=== PATIENT | male | born 1980 | race Hispanic/Latino ===

== ENCOUNTER 2017-09-24 09:58 | Emergency (ER) | payer SELFPAY ==
[2017-09-24] MEDS ORDERED: FENTANYL CITR 100 MCG/2 ML ONE (11:48)
--- NOTE | 2017-09-24 12:55 | RAD REPORT ---
EXAM DESCRIPTION: RAD - Knee Right 3 View - 09/24/2017 12:42 pm CLINICAL HISTORY: Right knee pain. COMPARISON: None. FINDINGS: No fracture or dislocation seen. Soft tissue swelling is evident.
[2017-09-24 12:56] LABS: Bicarbonate 33 mEq/L (21-31); Glucose Level 131 mg/dL (65-120); Sodium Level 137 mEq/L (135-145)
[2017-09-24 12:58] LABS: ALT/SGPT 24 IU/L (10-60); AST/SGOT 19 IU/L (10-42); BUN Blood Urea Nitrogen 13 mg/dL (6-20); Bilirubin Total 0.2 mg/dL (0.3-1.2); CKMB Creatine Kinase MB 3.9 ng/ml (0.3-4.0); Creatine Phosphokinase 128 IU/L (22-269); Magnesium 1.9 mg/dL (1.8-2.5); Protein, Total 7.2 g/dL (6.0-8.3)
--- NOTE | 2017-09-24 12:58 | RAD REPORT ---
EXAM DESCRIPTION: [place] Single View09/24/2017 12:43 pm CLINICAL HISTORY: Chest pain COMPARISON: none FINDINGS: The lungs appear grossly clear. The heart is mildly enlarged. IMPRESSION: No acute abnormalities displayed
[2017-09-24 13:04] LABS: Alkaline Phosphatase 87 IU/L (42-121); Bilirubin Direct 0.1 mg/dL (0-0.2); C-Reactive Protein 37.4 mg/L (<10.0); Uric Acid 5.7 mg/dL (4.8-8.7)
[2017-09-24 13:17] LABS: Protime INR 1.09
[2017-09-24 13:21] LABS: Absolute Lymphocytes (CBC) 1.9 K/uL (0.7-4.9); Absolute Monocytes 0.8 K/uL (0.1-1.3); Absolute Neutrophil 10.2 K/uL (1.8-8.0); Basophils % 0.3 % (0-1.3); Eosinophils % 2.2 % (0-4.4); Hematocrit 36.3 % (39.6-49.0); Lymphocytes % 14.4 % (15.3-44.8); MCH 23.9 pg (27.0-35.0); MPV 6.9 fL (7.6-11.3); Monocytes % 5.7 % (3.3-12.3)
[2017-09-24 14:09] LABS: Urine Blood 2+ (NEG); Urine Glucose NEGATIVE (NEG); Urine Protein 3+ (NEG); Urine Specific Gravity 1.025 (1.005-1.030)
--- NOTE | 2017-09-24 14:20 | ER ---
Nurse's Notes [facility] Name: Mandy Dee Age: 37 yrs Sex: Male : 1980 Arrival Date: 09/24/2017 Time: 10:04 Bed 14 Private MD: Diagnosis: Pain in right knee;Obesity, unspecified;Peripheral vascular disease, unspecified;Edema, unspecified Presentation: 09/24 10:33 Presenting complaint: Patient states: I've been having pain in my knee, and today I aj1 can't stand on it. I have these spider bites on my legs and they are draining and it hurts a lot. Redness and swelling, swelling and purulent drainage noted from right leg. Denies fever. Transition of care: patient was not received from another setting of care. Onset of symptoms was July 13, 2017. Initial Sepsis Screen: Does the patient meet any 2 criteria? No. Patient's initial sepsis screen is negative. Does the patient have a suspected source of infection? Yes: Skin breakdown/wound. Care prior to arrival: None. 10:33 Method Of Arrival: Ambulatory aj 10:33 Acuity: DEVON 3 aj1 Triage Assessment: 10:37 General: Appears in no apparent distress. uncomfortable, Behavior is calm, cooperative, aj1 appropriate for age. Pain: Complains of pain in right leg Pain does not radiate. Pain currently is 10 out of 10 on a pain scale. Quality of pain is described as sharp, Pain began a week and a half ago Is continuous. Derm: redness, swelling, heat, purulent drainage from right fields. Historical: - Allergies: 10:37 No Known Allergies; aj1 - Home Meds: 10:37 Lisinopril Oral [Active]; Metformin Oral [Active]; aj1 - PMHx: 10:37 Diabetes - NIDDM; Hypertension; aj1 - PSHx: 10:37 None; aj1 - Immunization history:: Adult Immunizations up to date. - Social history:: Smoking status: Patient/guardian denies using tobacco, Patient uses street drugs, marijuana. Screenin:16 Abuse screen: Denies threats or abuse. Denies injuries from another. Nutritional hj screening: No deficits noted. Tuberculosis screening: No symptoms or risk factors identified. Fall Risk None identified. Assessment: 10:55 General: Appears in no apparent distress. uncomfortable, Behavior is calm, cooperative, hj appropriate for age. Pain: Complains of pain in right leg. Neuro: Level of Consciousness is awake, alert, obeys commands, Oriented to person, place, time, situation, Appropriate for age. Cardiovascular: Capillary refill < 3 seconds Patient's skin is warm and dry. Respiratory: Airway is patent Respiratory effort is even, unlabored, Respiratory pattern is regular, symmetrical. GI: No signs and/or symptoms were reported involving the gastrointestinal system. : No signs and/or symptoms were reported regarding the genitourinary system. EENT: No signs and/or symptoms were reported regarding the EENT system. Derm: Reports pain. Musculoskeletal: Reports pain in right leg. Vital Signs: 10:37 BP 204 / 95; Pulse 78; Resp 20; Temp 98.2(TE); Pulse Ox 95% on R/A; Weight 249.48 kg aj1 (R); Height 6 ft. 2 in. (187.96 cm) (R); Pain 10/10; 11:12 BP 159 / 98; Pulse 89; Resp 22; Pulse Ox 95% on R/A; mh5 14:52 BP 140 / 95; Pulse 85; Resp 18; Pulse Ox 100% on R/A; hj 10:37 Body Mass Index 70.62 (249.48 kg, 187.96 cm) aj1 ED Course: 10:04 Patient arrived in ED. sb2 10:36 Triage completed. aj1 10:37 Arm band placed on Patient notified of wait time. aj1 11:13 [facility]C [facility] snw 11:14 Rubén Navarro MD is Attending Physician. snw 11:16 Trevor Rogel, BRENNAN is Primary Nurse. hj 11:16 Patient has correct armband on for positive identification. Bed in low position. Call light in reach. Side rails up X 1. Adult w/ patient. 12:10 Initial lab(s) drawn, by me, sent to lab. First set of blood cultures drawn by ED staff.hj 12:26 Inserted saline lock: 22 gauge in right antecubital area, using aseptic technique. Blood collected. 12:27 Second set of blood cultures drawn by me. hj 12:37 X-ray completed. Portable x-ray completed in exam room. Patient tolerated procedure jb2 well. 12:39 Knee Right 3 View XRAY In Process Unspecified. EDMS 12:39 XRAY Chest (1 view) In Process Unspecified. EDMS 12:41 EKG done, by automotive tire technician. reviewed by Annalise SUH. 14:51 No provider procedures requiring assistance completed. IV discontinued, intact, hj bleeding controlled, No redness/swelling at site. Pressure dressing applied. Administered Medications: 12:10 Drug: fentaNYL (PF) 50 mcg Route: IVP; Site: right antecubital; hj 14:13 Follow up: Response: No adverse reaction hj 14:21 Drug: Doxycycline 100 mg Route: PO; hj 14:28 Follow up: Response: No adverse reaction hj 14:21 Drug: [place] 5 mg-325 mg 1 tabs Route: PO; hj 14:28 Follow up: Response: No adverse reaction hj Outcome: 14:20 Discharge ordered by MD. snw 14:51 Discharged to home via wheelchair. 14:51 Condition: stable 14:51 Discharge instructions given to patient, family, Instructed on discharge instructions, follow up and referral plans. medication usage, Demonstrated understanding of instructions, follow-up care, medications, Prescriptions given X 2. 14:53 Patient left the ED. Signatures: Dispatcher [employer] EDLorraine Napoles RN RN aj1 Annalise Deluca FNP-C FNP-Maryw Andriy Martin jb2 Angela Lozano Trevor Rogel RN RN hj Martinez, [facility] Jordyn Montemayor 2
--- NOTE | 2017-09-24 14:20 | EDPHYS ---
Physician Documentation [facility] Name: Mandy Dee Age: 37 yrs Sex: Male : 1980 Arrival Date: 09/24/2017 Time: 10:04 Bed 14 Private MD: ED Physician Rubén Nvaarro HPI: 09/24 12:06 This 37 yrs old Male presents to ER via Ambulatory with complaints of LEG snw INFECTION. 12:06 Onset: The symptoms/episode began/occurred gradually, 1 month(s) ago, and became snw persistent. Associated signs and symptoms: Pertinent positives: right knee pain. Modifying factors: The patient symptoms are alleviated by nothing, the patient symptoms are aggravated by ambulation. The patient has experienced a previous episode. The patient has not recently seen a physician, sees [facility]. Historical: - Allergies: 10:37 No Known Allergies; aj1 - Home Meds: 10:37 Lisinopril Oral [Active]; Metformin Oral [Active]; aj1 - PMHx: 10:37 Diabetes - NIDDM; Hypertension; aj1 - PSHx: 10:37 None; aj1 - Immunization history:: Adult Immunizations up to date. - Social history:: Smoking status: Patient/guardian denies using tobacco, Patient uses street drugs, marijuana. ROS: 12:04 Constitutional: Negative for fever, chills, and weight loss, Eyes: Negative for injury, snw pain, redness, and discharge, ENT: Negative for injury, pain, and discharge, Neck: Negative for injury, pain, and swelling, Cardiovascular: Negative for chest pain, palpitations, and edema, Respiratory: Negative for shortness of breath, cough, wheezing, and pleuritic chest pain, Abdomen/GI: Negative for abdominal pain, nausea, vomiting, diarrhea, and constipation, Back: Negative for injury and pain, : Negative for injury, bleeding, discharge, and swelling, Skin: Negative for injury, rash, and discoloration, Neuro: Negative for headache, weakness, numbness, tingling, and seizure. 12:04 MS/extremity: Positive for decreased range of motion, pain, of the right knee. Exam: 11:58 Head/Face: Normocephalic, atraumatic. Eyes: Pupils equal round and reactive to light, snw extra-ocular motions intact. Lids and lashes normal. Conjunctiva and sclera are non-icteric and not injected. Cornea within normal limits. Periorbital areas with no swelling, redness, or edema. ENT: Nares patent. No nasal discharge, no septal abnormalities noted. Tympanic membranes are normal and external auditory canals are clear. Oropharynx with no redness, swelling, or masses, exudates, or evidence of obstruction, uvula midline. Mucous membranes moist. Neck: Trachea midline, no thyromegaly or masses palpated, and no cervical lymphadenopathy. Supple, full range of motion without nuchal rigidity, or vertebral point tenderness. No Meningismus. Chest/axilla: Normal chest wall appearance and motion. Nontender with no deformity. No lesions are appreciated. Cardiovascular: Regular rate and rhythm with a normal S1 and S2. No gallops, murmurs, or rubs. Normal PMI, no JVD. No pulse deficits. Respiratory: Lungs have equal breath sounds bilaterally, clear to auscultation and percussion. No rales, rhonchi or wheezes noted. No increased work of breathing, no retractions or nasal flaring. 11:58 Back: No spinal tenderness. No costovertebral tenderness. Full range of motion. Neuro: Awake and alert, GCS 15, oriented to person, place, time, and situation. Cranial nerves II-XII grossly intact. Motor strength 5/5 in all extremities. Sensory grossly intact. Cerebellar exam normal. Normal gait. Psych: Awake, alert, with orientation to person, place and time. Behavior, mood, and affect are within normal limits. 11:58 Constitutional: The patient appears alert, awake, obese, uncomfortable. 11:58 Abdomen/GI: Inspection: obese Bowel sounds: normal, Palpation: mild abdominal tenderness, in all quadrants. 11:58 Musculoskeletal/extremity: Extremities: decreased ROM, swelling, tenderness, right lower ext with external rotation of foot, resists moving foot secondary to right knee pain. 11:58 Skin: Appearance: normal except for affected area, bilateral legs tight, edematous, orange peel like with mild erythema and seeping. Vital Signs: 10:37 BP 204 / 95; Pulse 78; Resp 20; Temp 98.2(TE); Pulse Ox 95% on R/A; Weight 249.48 kg aj1 (R); Height 6 ft. 2 in. (187.96 cm) (R); Pain 10/10; 11:12 BP 159 / 98; Pulse 89; Resp 22; Pulse Ox 95% on R/A; mh5 14:52 BP 140 / 95; Pulse 85; Resp 18; Pulse Ox 100% on R/A; hj 10:37 Body Mass Index 70.62 (249.48 kg, 187.96 cm) aj1 MDM: 11:14 Patient medically screened. snw 14:22 Data reviewed: vital signs, nurses notes. Data interpreted: Pulse oximetry: on room air snw is 95 %. Interpretation: acceptable. Counseling: I had a detailed discussion with the patient and/or guardian regarding: the historical points, exam findings, and any diagnostic results supporting the discharge/admit diagnosis, the presence of at least one elevated blood pressure reading (>120/80) during this emergency department visit, lab results, radiology results, the need for outpatient follow up, to return to the emergency department if symptoms worsen or persist or if there are any questions or concerns that arise at home. Special discussion: Based on the history and exam findings, there is no indication for further emergent testing or inpatient evaluation. I discussed with the patient/guardian the need to see the orthopedic surgeon for further evaluation of the symptoms. I discussed with the patient/guardian the need to see the primary care provider for further evaluation of the symptoms. 09/24 11:40 Order name: Basic Metabolic Panel; Complete Time: 13: snw 09/24 11:40 Order name: BNP; Complete Time: 13:02 snw 09/24 11:40 Order name: CBC with Diff; Complete Time: 13:36 snw 09/24 11:40 Order name: Ckmb; Complete Time: 13: snw 09/24 11:40 Order name: CPK; Complete Time: 13:05 snw 09/24 11:40 Order name: LFT's; Complete Time: 13:05 snw 09/24 11:40 Order name: Magnesium; Complete Time: 13:05 snw 09/24 11:40 Order name: PT-INR; Complete Time: 13:31 snw 09/24 11:40 Order name: Ptt, Activated; Complete Time: 13:31 snw 09/24 11:40 Order name: Blood Culture Adult (2) snw 09/24 11:40 Order name: Lactate; Complete Time: 13:02 09/24 11:40 Order name: Procalcitonin; Complete Time: 13:11 09/24 11:40 Order name: CRP; Complete Time: 13:05 09/24 11:40 Order name: Uric Acid; Complete Time: 13:05 09/24 11:00 Order name: Knee Right 3 View XRAY; Complete Time: 12:55 09/24 11:40 Order name: XRAY Chest (1 view); Complete Time: 13:02 09/24 11:40 Order name: EKG; Complete Time: 11:41 09/24 11:40 Order name: Cardiac monitoring; Complete Time: 11:41 09/24 11:40 Order name: EKG - Nurse/Tech; Complete Time: 12:26 09/24 11:40 Order name: IV Saline Lock; Complete Time: 12:26 09/24 11:40 Order name: Labs collected and sent; Complete Time: 12:26 09/24 11:40 Order name: O2 Per Protocol; Complete Time: 11:41 09/24 11:40 Order name: O2 Sat Monitoring; Complete Time: 11:41 09/24 11:40 Order name: Urine Dipstick-Ancillary (obtain specimen); Complete Time: 12:55 09/24 11:40 Order name: LDH; Complete Time: 13:05 09/24 12:58 Order name: Urine Dipstick--Ancillary (enter results); Complete Time: 14:18 bd Administered Medications: 12:10 Drug: fentaNYL (PF) 50 mcg Route: IVP; Site: right antecubital; hj 14:13 Follow up: Response: No adverse reaction hj 14:21 Drug: Doxycycline 100 mg Route: PO; hj 14:28 Follow up: Response: No adverse reaction hj 14:21 Drug: [place] 5 mg-325 mg 1 tabs Route: PO; hj 14:28 Follow up: Response: No adverse reaction Disposition: 09/25 06:26 Co-signature as Attending Physician, Rubén Navarro MD. Disposition: 09/24/17 14:20 Discharged to Home. Impression: Pain in right knee, Obesity, unspecified, Peripheral vascular disease, unspecified, Edema, unspecified. - Condition is Stable. - Discharge Instructions: Edema, Knee Bracing, Obesity, Peripheral Vascular Disease, Knee Pain, Rehydration, Adult. - Prescriptions for Hydrochlorothiazide 25 mg Oral Tablet - take 1 tablet by ORAL route once daily .; 30 tablet. Doxycycline Hyclate 100 mg Oral Tablet - take 1 tablet by ORAL route every 12 hours; 20 tablet. - Work release form, Medication Reconciliation Form, Thank You Letter, Antibiotic Education, Prescription Opioid Use form. - Follow up: Private Physician; When: 2 - 3 days; Reason: Recheck today's complaints, Continuance of care, Re-evaluation by your physician. Follow up: Emergency Department; When: As needed; Reason: Worsening of condition. Signatures: Dispatcher [employer] EDMS Lorraine Jackson RN RN aj1 Annalise Deluca, WIRE DROPPER-C WIRE DROPPER-Csnw Trevor Rogel RN RN Rubén Tee MD MD gs Corrections: (The following items were deleted from the chart) 09/24 14:53 14:20 09/24/2017 14:20 Discharged to Home. Impression: Pain in right knee; Obesity, hj unspecified; Peripheral vascular disease, unspecified; Edema, unspecified. Condition is Stable. Forms are Medication Reconciliation Form, Thank You Letter, Antibiotic Education, Prescription Opioid Use. Follow up: Private Physician; When: 2 - 3 days; Reason: Recheck today's complaints, Continuance of care, Re-evaluation by your physician. Follow up: Emergency Department; When: As needed; Reason: Worsening of condition. snw
[2017-09-24] MEDS ORDERED: DOXYCYCLINE 100 MG CAP PO ONE (14:26)
[2017-09-24] MEDS ORDERED: HYDROCODONE/APAP 5/325 MG TAB ONE (14:26)
--- NOTE | 2017-09-24 15:38 | EKG ---
Test Date: 2017-09-24 Test Time: 11:56:58 Accounting Systems Manager: TIM MEASUREMENT RESULTS: Intervals: Rate: 83 AL: 126 QRSD: 86 QT: 378 QTc: 444 [place]: P: 32 AL: 126 QRS: 75 T: 45 INTERPRETIVE STATEMENTS: Normal sinus rhythm Normal ECG No previous ECG available for comparison Electronically Signed On 09-24-17 15:37:32 CDT by Joaquín Villafuerte
== END 2017-09-24 14:53 | disposition home or self-care (01) ==
LOC: ER 09:58
DX: I73.9 Peripheral vascular disease, unspecified (principal); R60.9 Edema, unspecified; E66.9 Obesity, unspecified; I10 Essential (primary) hypertension; E11.9 Type 2 diabetes mellitus without complications
CPT/HCPCS: 36415; 71045; 80048; 80076; 81003; 82550; 82553; 83605; 83615; 83735; 83880; 84145; 84550; 85025; 85610; 85730; 86140; 87040; 93005; 96374; 99284; J3010

== ENCOUNTER 2018-10-11 08:53 | Observation (INO) | payer SELFPAY ==
[2018-10-11] MEDS ORDERED: FAMOTIDINE 20 MG/2 ML VIAL IV ONE (09:49)
[2018-10-11 09:57] LABS: Absolute Lymphocytes (CBC) 1.9 K/uL (0.7-4.9); Absolute Monocytes 0.5 K/uL (0.1-1.3); Absolute Neutrophil 8.5 K/uL (1.8-8.0); Basophils % 0.4 % (0-1.3); Eosinophils % 1.9 % (0-4.4); Hematocrit 35.4 % (39.6-49.0); Lymphocytes % 16.9 % (15.3-44.8); MPV 7.8 fL (7.6-11.3); Monocytes % 4.4 % (3.3-12.3); RBC Red Blood Cell Count 4.13 M/uL (4.33-5.43)
[2018-10-11 10:14] LABS: ALT/SGPT 38 U/L (12-78); AST/SGOT 17 U/L (15-37); Albumin 3.2 g/dL (3.4-5.0); Alkaline Phosphatase 82 U/L (45-117); BUN Blood Urea Nitrogen 15 mg/dL (7-18); Bicarbonate 28 mmol/L (21-32); Bilirubin Direct < 0.1 mg/dL (0-0.2); Bilirubin Total 0.3 mg/dL (0.2-1.0); Glucose Level 120 mg/dL (74-106); Lipase 142 U/L (73-393); Magnesium 1.7 mg/dL (1.8-2.4); NT PRO-BNP 78 pg/mL (<125); Potassium 3.6 mmol/L (3.5-5.1); Protein, Total 7.1 g/dL (6.4-8.2); Sodium Level 140 mmol/L (136-145); Troponin (Emerg Dept Use Only) < 0.02 ng/mL (0.0-0.045)
[2018-10-11 10:23] LABS: Barbiturates NEGATIVE (NEGATIVE); Benzodiazepines NEGATIVE (NEGATIVE); Cocaine NEGATIVE (NEGATIVE); METHAMPHETAM NEGATIVE (NEGATIVE); Methadone NEGATIVE (NEGATIVE); Opiates NEGATIVE (NEGATIVE); Phencyclidine NEGATIVE (NEGATIVE); THC Cannibis POSITIVE (NEGATIVE)
--- OUTSIDE RECORDS SUMMARY | 2018-10-11 10:28 | XMS REPORT ---
:1980 [facility] Address [address] [place] [address] Care Team Providers Name Role Phone Unavailable Unavailable Unavailable Payers Payer Name Policy Type Policy Number Effective Date Expiration Date Problems This patient has no known problems. Allergies, Adverse Reactions, Alerts Allergy Allergy Status Severity Reaction(s) Onset Inactive Treating Comments Name Type Date Date Clinician shellnedra AGUILAR Active [place] 2018-04 00:00:0 0 Medications This patient has no known medications.
--- NOTE | 2018-10-11 10:34 | EDPHYS ---
Physician Documentation [facility] Name: Mandy Dee Age: 38 yrs Sex: Male : 1980 Arrival Date: 10/11/2018 Time: 08:55 Bed 5 Private MD: ED Physician Mohinder Rodriguez HPI: 10/11 10:28 This 38 yrs old Male presents to ER via EMS with complaints of chest pain and delvin dyspnea. 10:28 The patient has shortness of breath at rest, with light activity. Onset: The delvin symptoms/episode began/occurred just prior to arrival, this morning. Duration: The symptoms are continuous, and are steadily getting worse. The patient's shortness of breath has no apparent modifying factors. The patient or guardian reports chest pain that is located primarily in the substernal area. The pain does not radiate. Associated signs and symptoms: The patient has no apparent associated signs or symptoms. Severity of symptoms: At their worst the symptoms were mild in the emergency department the symptoms are unchanged. Associated signs and symptoms: The patient has no apparent associated signs or symptoms. The chest pain is described as a heaviness, a pressure. Historical: - Allergies: 09:04 SHELLFISH; ph - Home Meds: 09:04 lisinopril Oral [Active]; Metformin Oral [Active]; ph - PMHx: 09:04 Diabetes - NIDDM; Hypertension; ph - PSHx: 09:04 None; ph - Immunization history:: Adult Immunizations unknown. - Social history:: Smoking status: Patient/guardian denies using tobacco. - Ebola Screening: : No symptoms or risks identified at this time. - Family history:: not pertinent. ROS: 10:28 Constitutional: Negative for fever, chills, and weight loss, Eyes: Negative for injury, delvin pain, redness, and discharge, ENT: Negative for injury, pain, and discharge, Neck: Negative for injury, pain, and swelling, Abdomen/GI: Negative for abdominal pain, nausea, vomiting, diarrhea, and constipation, Back: Negative for injury and pain, : Negative for injury, bleeding, discharge, and swelling, MS/Extremity: Negative for injury and deformity, Skin: Negative for injury, rash, and discoloration, Neuro: Negative for headache, weakness, numbness, tingling, and seizure, Psych: Negative for depression, anxiety, suicide ideation, homicidal ideation, and hallucinations, Allergy/Immunology: Negative for hives, rash, and allergies, Endocrine: Negative for neck swelling, polydipsia, polyuria, polyphagia, and marked weight changes, Hematologic/Lymphatic: Negative for swollen nodes, abnormal bleeding, and unusual bruising. 10:28 Cardiovascular: Positive for chest pain. 10:28 Respiratory: Positive for shortness of breath, at rest. Exam: 10:28 Constitutional: This is a well developed, well nourished patient who is awake, alert, delvin and in no acute distress. Head/Face: Normocephalic, atraumatic. Eyes: Pupils equal round and reactive to light, extra-ocular motions intact. Lids and lashes normal. Conjunctiva and sclera are non-icteric and not injected. Cornea within normal limits. Periorbital areas with no swelling, redness, or edema. ENT: Nares patent. No nasal discharge, no septal abnormalities noted. Tympanic membranes are normal and external auditory canals are clear. Oropharynx with no redness, swelling, or masses, exudates, or evidence of obstruction, uvula midline. Mucous membranes moist. Neck: Trachea midline, no thyromegaly or masses palpated, and no cervical lymphadenopathy. Supple, full range of motion without nuchal rigidity, or vertebral point tenderness. No Meningismus. Chest/axilla: Normal chest wall appearance and motion. Nontender with no deformity. No lesions are appreciated. Cardiovascular: Regular rate and rhythm with a normal S1 and S2. No gallops, murmurs, or rubs. Normal PMI, no JVD. No pulse deficits. Respiratory: Lungs have equal breath sounds bilaterally, clear to auscultation and percussion. No rales, rhonchi or wheezes noted. No increased work of breathing, no retractions or nasal flaring. Abdomen/GI: Soft, non-tender, with normal bowel sounds. No distension or tympany. No guarding or rebound. No evidence of tenderness throughout. Back: No spinal tenderness. No costovertebral tenderness. Full range of motion. Skin: Warm, dry with normal turgor. Normal color with no rashes, no lesions, and no evidence of cellulitis. MS/ Extremity: Pulses equal, no cyanosis. Neurovascular intact. Full, normal range of motion. Neuro: Awake and alert, GCS 15, oriented to person, place, time, and situation. Cranial nerves II-XII grossly intact. Motor strength 5/5 in all extremities. Sensory grossly intact. Cerebellar exam normal. Normal gait. Psych: Awake, alert, with orientation to person, place and time. Behavior, mood, and affect are within normal limits. 10:28 Musculoskeletal/extremity: DVT Exam: No signs of deep vein thrombosis. no pain, no swelling, no tenderness, negative Homans' sign noted on exam, no appreciated bluish discoloration, no erythema, no increased warmth. Vital Signs: 09:02 BP 152 / 89; Pulse 69; Resp 22; Temp 98.4; Pulse Ox 96% on R/A; Weight 248.12 kg; ph Height 6 ft. 2 in. (187.96 cm); Pain 6/10; 09:55 BP 153 / 86; Pulse 62; Resp 16; Temp 98.1(O); Pulse Ox 99% on R/A; mh5 10:43 BP 168 / 79; Pulse 64; Resp 18 S; Pulse Ox 98% on R/A; Pain 4/10; sg 11:59 BP 132 / 71; Pulse 59; Resp 17; Pulse Ox 98% on R/A; sg 12:54 BP 156 / 61; Pulse 59; Resp 16; Temp 98.3(O); Pulse Ox 99% on R/A; mh5 13:49 BP 160 / 70; Pulse 59 MON; Resp 19 S; Temp 98.3; Pulse Ox 100% on R/A; Pain 2/10; sg 09:02 Body Mass Index 70.23 (248.12 kg, 187.96 cm) ph Megan Coma Score: 11:59 Eye Response: spontaneous(4). Verbal Response: oriented(5). Motor Response: obeys sg commands(6). Total: 15. MDM: 08:55 Patient medically screened. [facility] 10:32 Data reviewed: vital signs, nurses notes, lab test result(s), EKG, radiologic studies, delvin plain films. 10/11 09:00 Order name: Basic Metabolic Panel; Complete Time: 10:21 [facility] 10/11 09:00 Order name: CBC with Diff; Complete Time: 10:21 [facility] 10/11 09:00 Order name: LFT's; Complete Time: 10:21 [facility] 10/11 09:00 Order name: Magnesium; Complete Time: 10: [facility] 10/11 09:00 Order name: NT PRO-BNP; Complete Time: 10: [facility] 10/11 09:00 Order name: PT-INR; Complete Time: 10: [facility] 10/11 09:00 Order name: Troponin (emerg Dept Use Only); Complete Time: 10: [facility] 10/11 09:00 Order name: XRAY Chest (1 view) [facility] 10/11 09:00 Order name: Lipase; Complete Time: 10: [facility] 10/11 09:00 Order name: D-Dimer; Complete Time: 10: [facility] 10/11 09:00 Order name: UDS; Complete Time: 10: [facility] 10/11 09:32 Order name: Urine Dipstick--Ancillary (enter results) 10/11 10:25 Order name: Echo w/ Doppler [facility] 10/11 12:56 Order name: Glucose, Ancillary Testing EDMS 10/11 09:00 Order name: EKG; Complete Time: 09: [facility] 10/11 09:00 Order name: Cardiac monitoring; Complete Time: 09: [facility] 10/11 09:00 Order name: EKG - Nurse/Tech; Complete Time: 09: [facility] 10/11 09:00 Order name: IV Saline Lock; Complete Time: : [facility] 10/11 09:00 Order name: Labs collected and sent; Complete Time: 09: [facility] 10/11 09:00 Order name: O2 Per Protocol; Complete Time: 09:09 [facility] 10/11 09:00 Order name: O2 Sat Monitoring; Complete Time: 09: [facility] 10/11 09:00 Order name: Urine Dipstick-Ancillary (obtain specimen); Complete Time: 09:34 [facility] Administered Medications: 09:08 Not Given (administered by EMS): Aspirin Chewable Tablet 324 mg PO once; 81 mg tablets ph x 4 10:07 Drug: Pepcid 20 mg Route: IVP; Site: right hand; ph 10:30 Follow up: Response: No adverse reaction ph 10:40 Drug: Magnesium Sulfate 1 grams Route: IVPB; Infused Over: 1 hrs; Site: right hand; sg 11:40 Follow up: Response: No adverse reaction; IV Status: Completed infusion ph 10:40 Drug: Lovenox 100 mg Route: Sub-Q; Site: right lower abdomen; 11:30 Follow up: Response: No adverse reaction ph Point of Care Testing: Blood Glucose: 09:02 Blood Glucose: 129 mg/dL; mh5 Ranges: Critical Glucose Levels:Adult <50 mg/dl or >400 mg/dl <40 mg/dl or >180 mg/dl Disposition: 10/11/18 10:33 Hospitalization ordered by Zeus Tyson for Observation. Preliminary diagnosis are Other chest pain, Dyspnea, Type 2 diabetes mellitus, Obesity, unspecified, Essential (primary) hypertension. - Bed requested for Telemetry/MedSurg (observation). - Status is Observation. iw - Condition is Stable. - Problem is new. - Symptoms have improved. UTI on Admission? No Signatures: Dispatcher [employer] EDMS Maco Montiel RN RN sg Anderson, Corey, MD MD cha Williams, Irene RN BRENNAN Guadalupe Hernandez RN RN Nohelia Steen [facility] Corrections: (The following items were deleted from the chart) 10:35 10:33 Hospitalization Ordered by Keely Granda MD for Observation. Preliminary delvin diagnosis is Other chest pain; Dyspnea; Type 2 diabetes mellitus; Obesity, unspecified; Essential (primary) hypertension. Bed requested for Telemetry/MedSurg (observation). Status is Observation. Condition is Stable. Problem is new. Symptoms have improved. UTI on Admission? No. delvin 12:53 10:35 10/11/2018 10:33 Hospitalization Ordered by Zeus Tyson MD for Observation. 3 Preliminary diagnosis is Other chest pain; Dyspnea; Type 2 diabetes mellitus; Obesity, unspecified; Essential (primary) hypertension. Bed requested for Telemetry/MedSurg (observation). Status is Observation. Condition is Stable. Problem is new. Symptoms have improved. UTI on Admission? No. delvin 13:59 12:53 10/11/2018 10:33 Hospitalization Ordered by Zeus Tyson MD for Observation. iw Preliminary diagnosis is Other chest pain; Dyspnea; Type 2 diabetes mellitus; Obesity, unspecified; Essential (primary) hypertension. Bed requested for Telemetry/MedSurg (observation). Status is Observation. Condition is Stable. Problem is new. Symptoms have improved. UTI on Admission? No. 3
--- NOTE | 2018-10-11 10:34 | ER ---
Nurse's Notes [facility] Name: Mandy Dee Age: 38 yrs Sex: Male : 1980 Arrival Date: 10/11/2018 Time: 08:55 Bed 5 Private MD: Diagnosis: Other chest pain;Dyspnea;Type 2 diabetes mellitus;Obesity, unspecified;Essential (primary) hypertension Presentation: 10/11 08:56 Presenting complaint: EMS states: Chest pain that began this morning, also reports ph dizziness and SOB, hx of HTN, initial BP 190s/90s, pt states that he had not taken morning BP meds, nitro x 1 and 324 ASA administered, pt currently being treated w/ Amoxicillin for throat infection, BGL 133. Transition of care: patient was not received from another setting of care. Onset of symptoms was October 11, 2018. Risk Assessment: Do you want to hurt yourself or someone else? Patient reports no desire to harm self or others. Initial Sepsis Screen: Does the patient meet any 2 criteria? No. Patient's initial sepsis screen is negative. Does the patient have a suspected source of infection? Yes: Other: throat infection. Care prior to arrival: Medication(s) given: ASA, 81 mg, x 4, Nitroglycerin, x 1, IV initiated. 18 GA, in the right hand, Glucose check: 133. 08:56 Method Of Arrival: EMS: [facility] ph 08:56 Acuity: DEVON 3 ph Historical: - Allergies: 09:04 SHELLFISH; ph - Home Meds: 09:04 lisinopril Oral [Active]; Metformin Oral [Active]; ph - PMHx: 09:04 Diabetes - NIDDM; Hypertension; ph - PSHx: 09:04 None; ph - Immunization history:: Adult Immunizations unknown. - Social history:: Smoking status: Patient/guardian denies using tobacco. - Ebola Screening: : No symptoms or risks identified at this time. - Family history:: not pertinent. Screenin:08 Abuse screen: Denies threats or abuse. Denies injuries from another. Nutritional ph screening: No deficits noted. Tuberculosis screening: No symptoms or risk factors identified. Fall Risk None identified. Assessment: 09:05 General: Appears in no apparent distress. comfortable, obese, Behavior is calm, ph cooperative, appropriate for age, Denies fever, feeling ill. Pain: Complains of pain in anterior aspect of left upper chest and left breast Pain does not radiate. Pain currently is 6 out of 10 on a pain scale. Neuro: Level of Consciousness is awake, alert, obeys commands, Oriented to person, place, time, situation, Reports dizziness. Cardiovascular: Reports chest pain, lightheadedness, shortness of breath, Denies diaphoresis, nausea, vomiting, Capillary refill < 3 seconds in bilateral fingers Patient's skin is warm and dry. Chest pain is located in left anterior chest wall began 1 hour prior to arrival. Respiratory: Reports shortness of breath at rest Airway is patent Respiratory effort is even, unlabored, Respiratory pattern is regular, symmetrical. GI: No signs and/or symptoms were reported involving the gastrointestinal system. Patient currently denies abdominal pain, nausea, vomiting. Derm: Skin is intact, is healthy with good turgor, Skin is pink, warm \T\ dry. Musculoskeletal: Circulation, motion, and sensation intact. Range of motion: intact in all extremities. 10:09 Reassessment: Patient appears in no apparent distress at this time. Patient and/or ph family updated on plan of care and expected duration. Pain level reassessed. Patient is alert, oriented x 3, equal unlabored respirations, skin warm/dry/pink. Pt reports that chest pain has decreased to 4/10, VSS, awaiting lab and radiology results, SO at bedside. 12:00 Reassessment: Patient appears in no apparent distress at this time. Patient and/or sg family updated on plan of care and expected duration. Pain level reassessed. Patient is alert, oriented x 3, equal unlabored respirations, skin warm/dry/pink. awaiting ECHO at this time Patient states feeling better. 12:01 Reassessment: tech at bedside for ECHO at this time. sg 13:00 Reassessment: Patient appears in no apparent distress at this time. Patient and/or ph family updated on plan of care and expected duration. Pain level reassessed. Patient is alert, oriented x 3, equal unlabored respirations, skin warm/dry/pink. Vital Signs: 09:02 BP 152 / 89; Pulse 69; Resp 22; Temp 98.4; Pulse Ox 96% on R/A; Weight 248.12 kg; ph Height 6 ft. 2 in. (187.96 cm); Pain 6/10; 09:55 BP 153 / 86; Pulse 62; Resp 16; Temp 98.1(O); Pulse Ox 99% on R/A; mh5 10:43 BP 168 / 79; Pulse 64; Resp 18 S; Pulse Ox 98% on R/A; Pain 4/10; sg 11:59 BP 132 / 71; Pulse 59; Resp 17; Pulse Ox 98% on R/A; sg 12:54 BP 156 / 61; Pulse 59; Resp 16; Temp 98.3(O); Pulse Ox 99% on R/A; mh5 13:49 BP 160 / 70; Pulse 59 MON; Resp 19 S; Temp 98.3; Pulse Ox 100% on R/A; Pain 2/10; sg 09:02 Body Mass Index 70.23 (248.12 kg, 187.96 cm) ph [place] Coma Score: 11:59 Eye Response: spontaneous(4). Verbal Response: oriented(5). Motor Response: obeys sg commands(6). Total: 15. ED Course: 08:55 Patient arrived in ED. delvin 08:55 Mohinder Rodriguez MD is Attending Physician. delvin 08:55 Guadalupe Hernandez, RN is Primary Nurse. ph 09:02 Triage completed. ph 09:02 Patient has correct armband on for positive identification. Bed in low position. [facility] light in reach. Side rails up X2. Adult w/ patient. personnel monitor on. Pulse ox on. NIBP on. 09:06 EKG done, by cardiac cath tech. reviewed by Mohinder Rodriguez MD. sm3 09:07 Maintain EMS IV. Dressing intact. Good blood return noted. Site clean \T\ dry. Gauge \T\ ph site: 18 L hand. 09:08 Arm band placed on Patient placed in an exam room, on a stretcher, on court monitor, ph on pulse oximetry. 09:27 Patient moved to radiology via wheelchair. jb2 09:31 X-ray completed. Patient tolerated procedure well. Patient moved back from radiology. jb2 09:34 XRAY Chest (1 view) In Process Unspecified. EDMS 09:34 Urine Dipstick--Ancillary (enter results) Sent. mh5 09:34 UDS Sent. mh5 09:34 Urine collected: clean catch specimen, clear. mh5 10:32 Keely Granda MD is Hospitalizing Provider. delvin 10:35 Zeus Tyson MD is Hospitalizing Provider. delvin 11:20 Admitting physician to see patient. sg 12:31 Echocardiogram with doppler done by procurement technician. tc 13:48 No provider procedures requiring assistance completed. Patient admitted, IV remains in sg place. intact, No redness/swelling at site. Administered Medications: 09:08 Not Given (administered by EMS): Aspirin Chewable Tablet 324 mg PO once; 81 mg tablets ph x 4 10:07 Drug: Pepcid 20 mg Route: IVP; Site: right hand; ph 10:30 Follow up: Response: No adverse reaction ph 10:40 Drug: Magnesium Sulfate 1 grams Route: IVPB; Infused Over: 1 hrs; Site: right hand; sg 11:40 Follow up: Response: No adverse reaction; IV Status: Completed infusion ph 10:40 Drug: Lovenox 100 mg Route: Sub-Q; Site: right lower abdomen; sg 11:30 Follow up: Response: No adverse reaction ph Point of Care Testing: Blood Glucose: 09:02 Blood Glucose: 129 mg/dL; mh5 Ranges: Outcome: 10:33 Decision to Hospitalize by Provider. delvin 13:47 Admitted to Med/surg accompanied by tech, family with patient, room 232, with chart, Report called to BRENNAN Tolentino 13:47 Condition: good 13:47 Instructed on the need for admit, safety practices, Demonstrated understanding of instructions. 13:59 Patient left the ED. iw Signatures: Dispatcher [employer] EDMS Maco Montiel RN RN sg Anderson, Corey, MD MD cha Buechter, Jesse jb2 Williams, Irene, Anais Guerrero RN, human services manager EKG [facility] Guadalupe Hernandez RN RN Yolis Sainz [facility] Debbie Dos Santos [facility]
[2018-10-11] MEDS ORDERED: ENOXAPARIN 100 MG/ML SYR SQ ONE (10:49)
[2018-10-11] MEDS ORDERED: MAGNESIUM SULFATE 1 gm IVPB 1 GM/100 ML BAG IV ONE (10:49)
--- NOTE | 2018-10-11 11:03 | RAD REPORT ---
EXAM DESCRIPTION: RAD - Chest Single View - 10/11/2018 9:35 am CLINICAL HISTORY: CHEST PAIN Chest pain. COMPARISON: Chest Single View dated 09/24/2017 FINDINGS: Portable technique limits examination quality. The lungs are grossly clear. The heart is normal in size. No displaced fractures. IMPRESSION: No acute intrathoracic process suspected.
--- NOTE | 2018-10-11 11:36 | EKG ---
Test Date: 2018-10-11 Test Time: 08:54:31 Society Reporter: BLACK MEASUREMENT RESULTS: Intervals: Rate: 79 WI: 148 QRSD: 90 QT: 372 QTc: 426 Deputy: P: 52 WI: 148 QRS: 83 T: 41 INTERPRETIVE STATEMENTS: Normal sinus rhythm Normal ECG Compared to ECG 09/24/2017 11:56:58 No significant changes Electronically Signed On 10-11-18 11:35:29 CDT by Oz Winn
[2018-10-11 12:05] LABS: Urine Blood 1+ (NEG); Urine Glucose NEGATIVE (NEG); Urine Protein 3+ (NEG); Urine Specific Gravity >1.030 (1.005-1.030); Urine pH 6.5 (5.0-7.0)
[2018-10-11] MEDS ORDERED: MORPHINE 2 MG/ML SYR IV PRN (13:48)
[2018-10-11] MEDS ORDERED: NITROGLYCERIN 0.4 MG/TAB SL PRN (13:48)
[2018-10-11] MEDS: ENOXAPARIN 40 MG/0.4 ML SQ SCH (15:00)
--- NOTE | 2018-10-11 15:44 | ECHO ---
HEIGHT: 6 ft 2 in WEIGHT: 547 lb 0 oz DATE OF STUDY: 10/11/[address]: Mohinder Rodriguez MD 2-DIMENSIONAL: YES M.MODE: YES DOPPLER: YES COLOR FLOW: YES TDS: YES PORTABLE: NO DEFINITY: NO BUBBLE STUDY: NO DIAGNOSIS: HEART MURMUR CARDIAC HISTORY: CATHERIZATION: NO SURGERY: NO PROSTHETIC VALVE: NO PACEMAKER: NO MEASUREMENTS (cm) DIASTOLIC (NORMALS) SYSTOLIC (NORMALS) IVSd 1.1 (0.6-1.2) LA Diam 4.3 (1.9-4.0) LVEF 69% LVIDd 4.6 (3.5-5.7) LVIDs 2.8 (2.0-3.5) %FS 39% LVPWd 1.3 (0.6-1.2) Ao Diam 3.2 (2.0-3.7) 2 DIMENSIONAL ASSESSMENT: RIGHT ATRIUM: NORMAL LEFT ATRIUM: NORMAL RIGHT VENTRICLE: NORMAL LEFT VENTRICLE: NORMAL TRICUSPID VALVE: NORMAL MITRAL VALVE: NORMAL PULMONIC VALVE: NORMAL AORTIC VALVE: NORMAL PERICARDIAL EFFUSION: NONE AORTIC ROOT: NORMAL LEFT VENTRICULAR WALL MOTION: NORMAL DOPPLER/COLOR FLOW: MILD TRICUSPID REGURGITATION. COMMENTS: MILD TRICUSPID REGURGITATION. TECHNICALLY DIFFICULT STUDY. NO WALL MOTION ABNORMALITY. NO EFFUSION. TECHNOLOGIST: Ila WELLER
[2018-10-11] MEDS ORDERED: POTASSIUM CL SA 10 MEQ TAB PO ONE (16:05)
[2018-10-11] MEDS: INSULIN -REGULAR HUMAN 50 UNIT/0.5 ML ML SQ SCH ×2 (16:30→21:00)
[2018-10-11] MEDS: METOPROLOL TAR 25 MG TAB PO SCH (17:22)
--- NOTE | 2018-10-11 18:03 | P.HP ---
Certification for Inpatient Patient admitted to: Observation Practitioner: I am a practitioner with admitting privileges, knowledge of patient current condition, hospital course, and medical plan of care. Services: Services provided to patient in accordance with Admission requirements found in Title 42 Section 412.3 of the Code of Federal Regulations Patient History Date of Service: 10/11/18 History of Present Illness: This is a 38-year-old morbidly obese former, smoker male with history of hypertension, diabetes admitted for chest pain and shortness of breath. Per patient, he started with shortness of breath this morning along with substernal chest pain, dizziness and lightheadedness. He describes the chest pain is sharp , without any radiation, that started at resting. Chest pain improved after nitro given by EMS. This pain has been associated with shortness of breath, dizziness or lightheadedness. He states that he has a previous episodes like this couple years ago, that is when he was diagnosed with hypertension and diabetes. He also states that he has episodes of panic attacks randomly. He denies any family history of any heart disease, fevers, chills, vision changes, weakness, facial drooping, speech changes, GI or complaints. In the ER, his blood pressure was 152/89, heart rate of 69, respirations 22, afebrile at 98.4 and 96% on room air. He has BMI of 70.23. His labs were unremarkable, EKG with normal sinus rhythm. His urine tox was positive for THC. He received Lovenox in the ER. He remained hemodynamically stable in the ER. At the time of my exam, he was alert oriented x3, in no acute distress and hemodynamically stable with elevated blood pressure. Patient was admitted for chest pain rule out due to his risk factors of morbidly obese, hypertension diabetes. Allergies No Known Allergies Allergy (Unverified 09/24/17 14:57) Home Medications: Lisinopril/Hydrochlorothiazide [Lisinopril-Hctz 10-12.5 mg Tab] 1 each PO BID Metformin HCl [Glucophage] 500 mg PO BIDWM 10/11/18 - Past Medical/Surgical History Has patient received pneumonia vaccine in the past: No Diabetic: Yes -: NIDDM -: HTN - Social History Smoking Status: Former smoker Alcohol use: No CD- Drugs: No Caffeine use: No Place of Residence: Home Review of Systems 10-point ROS is otherwise unremarkable Physical Examination - Vital Signs Temperature: 97.8 F Blood Pressure: 148/66 Pulse: 60 Respirations: 15 Pulse Ox (%): 94 - Physical Exam General: Alert, In no apparent distress, Obese HEENT: Atraumatic, PERRLA, Mucous membr. moist/pink, EOMI, Sclerae nonicteric Neck: Supple, 2+ carotid pulse no bruit, No LAD, Without JVD or thyroid abnormality Respiratory: Clear to auscultation bilaterally, Normal air movement Cardiovascular: Regular rate/rhythm, Normal S1 S2 Gastrointestinal: Normal bowel sounds, No tenderness Musculoskeletal: No tenderness Integumentary: No rashes Neurological: Normal gait, Normal speech, Normal strength at 5/5 x4 extr, Normal tone, Normal affect Lymphatics: No axilla or inguinal lymphadenopathy - Studies Laboratory Data (last 24 hrs) 10/11/18 09:00: PT 11.8, INR 1.00 10/11/18 09:00: WBC 11.1 H, Hgb 11.6 L, Hct 35.4 L, Plt Count 304 10/11/18 09:00: Sodium 140, Potassium 3.6, BUN 15, Creatinine 0.88, Glucose 120 H, Magnesium 1.7 L, Total Bilirubin 0.3, AST 17, ALT 38, Alkaline Phosphatase 82 , Lipase 142 Assessment and Plan - Problems (Diagnosis) (1) Chest pain, rule out acute myocardial infarction Current Visit: Yes Status: Acute Plan: Chest pain guidelines with beta-moe, aspirin, Plavix, statin. Nitro and morphine as needed for pain. Echo ordered, pending Cardiology consulted, awaiting recommendations. Monitor with tele Troponins negative x1, EKG normal sinus rhythm. Trend troponins (2) Hypertension Current Visit: Yes Status: Chronic Plan: We Will restart home medications. Blood pressure has been elevated, we will see what addition of metoprolol dose to patient's blood pressure. He may need to be discharged home on metoprolol. Continue to monitor and adjust blood pressure medications as needed Qualifiers: Hypertension type: essential hypertension Qualified Code(s): I10 - Essential (primary) hypertension (3) Diabetes mellitus Current Visit: Yes Status: Chronic Qualifiers: Diabetes mellitus type: type 2 Diabetes mellitus salvage determiner insulin use: without salvage determiner use Diabetes mellitus complication status: without complication Qualified Code(s): E11.9 - Type 2 diabetes mellitus without complications (4) Tetrahydrocannabinol (THC) use disorder, mild, abuse Current Visit: Yes Status: Acute - Plan DVT prophylaxis: Aspirin, Plavix, Lovenox GI prophylaxis: None Diet: Heart healthy Disposition: Pending evaluation. Anticipate discharge in the next 24 hr if all testing negative. - Advance Directives Does patient have a Living Will: No Does patient have a Durable POA for Healthcare: No
[2018-10-11] MEDS ORDERED: ATORVASTATIN 80 MG TAB PO SCH (21:00)
[2018-10-12] MEDS: METOPROLOL TAR 25 MG TAB PO SCH (05:12)
[2018-10-12 06:18] LABS: Absolute Lymphocytes (CBC) 2.8 K/uL (0.7-4.9); Absolute Monocytes 0.7 K/uL (0.1-1.3); Absolute Neutrophil 8.6 K/uL (1.8-8.0); Basophils % 0.5 % (0-1.3); Hematocrit 37.8 % (39.6-49.0); Lymphocytes % 22.8 % (15.3-44.8); MPV 7.5 fL (7.6-11.3); Monocytes % 5.3 % (3.3-12.3); RBC Red Blood Cell Count 4.37 M/uL (4.33-5.43)
[2018-10-12 06:30] LABS: ALT/SGPT 41 U/L (12-78); AST/SGOT 16 U/L (15-37); Albumin 3.5 g/dL (3.4-5.0); Alkaline Phosphatase 83 U/L (45-117); BUN Blood Urea Nitrogen 12 mg/dL (7-18); Bicarbonate 33 mmol/L (21-32); Bilirubin Total 0.3 mg/dL (0.2-1.0); Glucose Level 97 mg/dL (74-106); Magnesium 2.2 mg/dL (1.8-2.4); Potassium 4.7 mmol/L (3.5-5.1); Protein, Total 7.7 g/dL (6.4-8.2); Sodium Level 141 mmol/L (136-145)
[2018-10-12] MEDS: INSULIN -REGULAR HUMAN 50 UNIT/0.5 ML ML SQ SCH (07:30)
[2018-10-12] MEDS ORDERED: hydroCHLOROthiazide 12.5 MG CAP PO SCH (09:00)
[2018-10-12] MEDS ORDERED: ASPIRIN EC 81 MG TAB PO SCH (09:00)
[2018-10-12] MEDS ORDERED: LISINOPRIL 10 MG TAB PO SCH (09:00)
[2018-10-12] MEDS ORDERED: HOME MED 1 EA UNK (Lisinopril/Hydrochlorothiazide [Lisinopril-Hctz 10-12.5 Mg Tab] 1 EACH) PO SCH (09:00)
[2018-10-12] MEDS ORDERED: CLOPIDOGREL 75 MG TABLET PO SCH (09:00)
[2018-10-12] MEDS: ENOXAPARIN 40 MG/0.4 ML SQ SCH (09:45)
--- NOTE | 2018-10-12 10:34 | P.SSS ---
Patient History Date of Service: 10/12/18 Reason for admission: Chest pain History of Present Illness: This is a 38-year-old morbidly obese former, smoker male with history of hypertension, diabetes admitted for chest pain and shortness of breath. Per patient, he started with shortness of breath this morning along with substernal chest pain, dizziness and lightheadedness. He describes the chest pain is sharp , without any radiation, that started at resting. Chest pain improved after nitro given by EMS. This pain has been associated with shortness of breath, dizziness or lightheadedness. He states that he has a previous episodes like this couple years ago, that is when he was diagnosed with hypertension and diabetes. He also states that he has episodes of panic attacks randomly. He denies any family history of any heart disease, fevers, chills, vision changes, weakness, facial drooping, speech changes, GI or complaints. In the ER, his blood pressure was 152/89, heart rate of 69, respirations 22, afebrile at 98.4 and 96% on room air. He has BMI of 70.23. His labs were unremarkable, EKG with normal sinus rhythm. His urine tox was positive for THC. He received Lovenox in the ER. He remained hemodynamically stable in the ER. At the time of my exam, he was alert oriented x3, in no acute distress and hemodynamically stable with elevated blood pressure. Allergies No Known Allergies Allergy (Unverified 09/24/17 14:57) Home medications list reviewed: Yes Home Medications: Lisinopril/Hydrochlorothiazide [Lisinopril-Hctz 10-12.5 mg Tab] 1 each PO BID Metformin HCl [Glucophage*] 500 mg PO BIDWM 10/11/18 Atorvastatin Calcium [Lipitor] 80 mg PO BEDTIME #30 tab 10/12/18 Metoprolol Tartrate [Lopressor*] 25 mg PO DAILY #30 tab 10/12/18 - Past Medical/Surgical History Has patient received pneumonia vaccine in the past: No Diabetic: Yes -: NIDDM -: HTN - Social History Smoking Status: Former smoker Alcohol use: No CD- Drugs: No Caffeine use: No Place of Residence: Home Review of Systems 10-point ROS is otherwise unremarkable Physical Examination - Vital Signs Temperature: 97.9 F Blood Pressure: 143/78 Pulse: 58 Respirations: 16 Pulse Ox (%): 97 - Physical Exam General: Alert, In no apparent distress, Oriented x3, Obese HEENT: Atraumatic, PERRLA, Mucous membr. moist/pink, EOMI, Sclerae nonicteric Neck: Supple, 2+ carotid pulse no bruit, No LAD, Without JVD or thyroid abnormality Respiratory: Clear to auscultation bilaterally, Normal air movement Cardiovascular: Regular rate/rhythm, Normal S1 S2 Gastrointestinal: Normal bowel sounds, No tenderness Musculoskeletal: No tenderness Integumentary: No rashes Neurological: Normal gait, Normal speech, Normal strength at 5/5 x4 extr, Normal tone, Normal affect Lymphatics: No axilla or inguinal lymphadenopathy - Diagnosis (Problem(s)) (1) Chest pain, rule out acute myocardial infarction Current Visit: Yes Status: Acute (2) Hypertension Current Visit: Yes Status: Chronic Qualifiers: Hypertension type: essential hypertension Qualified Code(s): I10 - Essential (primary) hypertension (3) Diabetes mellitus Current Visit: Yes Status: Chronic Qualifiers: Diabetes mellitus type: type 2 Diabetes mellitus terminologist insulin use: without terminologist use Diabetes mellitus complication status: without complication Qualified Code(s): E11.9 - Type 2 diabetes mellitus without complications (4) Tetrahydrocannabinol (THC) use disorder, mild, abuse Current Visit: Yes Status: Acute Treatment Summary: Patient was admitted for chest pain rule out due to his risk factors of morbidly obese, hypertension diabetes. Cardiology was consulted. He was started on chest pain guidelines with beta-moe, aspirin, Plavix and statin. An echocardiogram was done, which is normal. His troponins remained negative x3, EKG without any changes. His blood pressure improved with metoprolol and his home medication of lisinopril/hydrochlorothiazide. The stress test was unable to be done due to body habitus. His chest pain and symptoms resolved. He was then cleared for discharge by cardiology. Prior to discharge, he was alert oriented x3, completely symptom-free and hemodynamically stable. His diagnoses and treatment plan explained to him, all questions were answered and patient verbalized understanding. He was then discharged home in a safe and stable manner. He will be following up with cardiology in 2 weeks and his primary clinic in [place] in 2-3 days. Return to emergency room precautions were provided. He was discharged home on a beta moe to help with his blood pressure. ACS was ruled out. - Disposition Discharge Date: 10/12/18 Disposition: ROUTINE DISCHARGE Condition: GOOD Consultations: Cardiology Patient Discharge Instructions: Please follow up at the [place] clinic in 2-3 days. Please follow up with the call person in 2 weeks. Information has been provided to you. Please return to the emergency room for worsening symptoms. New medications: Metoprolol, which is a medication to help her heart as well as her blood pressure. Atorvastatin, cholesterol medication. Diet: AHA Activity: Ad mu Time Spent Managing Pts Care (In Minutes): 45
--- NOTE | 2018-10-12 17:26 | CON ---
Date of Consultation: 10/11/2018 Reason For Consultation: Shortness of breath. History Of Present Illness: Mr. Dee is a 38-year-old [place] male with history of dyslipide micheline, hypertension, and diabetes and morbid obesity. He weighs over 530 pounds. He came in with shor tness of breath and some sharp chest pain in the midepigastric region. By the time I saw him, he has already had a normal EKG, normal CPKs, normal MBs, normal troponin and normal BNP as well as a lisseth l echocardiogram. His symptoms have been going on for approximately 2 days that were exertional. No nausea, vomiting, diaphoresis, PND, orthopnea, pedal edema, palpitation, or syncope reported. Past Medical History: As stated above. Allergies: NEGATIVE. Review of Systems: Negative. Social History: Negative. Family History: Noncontributory. Medications: Lipitor, lisinopril with hydrochlorothiazide, metformin 500 b.i.d., and metoprolol 25 m g 1 p.o. daily. Physical Examination: Vital Signs: Mr. Dee weighed 537 pounds. His blood pressure was normal. He was afebrile. HEENT: Negative. Neck: Supple without any bruit, lymphadenopathy, JVD, or thyromegaly. Chest: Clear. Cardiac: Normal. Abdomen: Obese. Extremities: Revealed no clubbing, cyanosis. He had 1+ edema. Diagnostic Data: All normal. Impression And Plan: Shortness of breath, most likely secondary to obesity and possible Pickwickian syndrome. He is not a candidate for stress test because of his weight. I do not see any reason to p erform any intervention or invasive cardiac workup. His echo is normal. His EKG is unremarkable. H is lab work is negative. I suggest he can go home on the same medical regimen, possibly double up hi s lisinopril with HCT since he was hypertensive at home. His other problems include dyslipidemia, di abetes are well controlled. His major problem is obesity and he is working on losing some weight. TEN/WARD Voice ID: [id number] Report ID: [id number]
== END 2018-10-12 11:33 | disposition home or self-care (01) ==
LOC: ER 08:53 → ERHOLD 11:40 → 2ND 13:49
PROVIDERS: ADMIT Family Medicine; ATTEND Family Medicine
DX: R07.9 Chest pain, unspecified (principal); E66.01 Morbid (severe) obesity due to excess calories; Z68.45 Body mass index [BMI] 70 or greater, adult; I10 Essential (primary) hypertension; E11.9 Type 2 diabetes mellitus without complications; F12.10 Cannabis abuse, uncomplicated; Z87.891 Personal history of nicotine dependence
CPT/HCPCS: 36415; 71045; 80048; 80053; 80076; 80307; 81003; 82962; 83690; 83735; 83880; 84100; 84484; 85025; 85379; 85610; 93005; 93306; 96365; 96372; 96375; 99285; G0378; J1650; J3475

== ENCOUNTER 2019-01-18 10:11 | Emergency (ER) | payer SELFPAY ==
--- OUTSIDE RECORDS SUMMARY | 2019-01-18 10:16 | XMS REPORT | Summary of Care ---
:1980 Author Organization [address] [address] Care Team Providers Name Role Phone Jaqueline Mcnamara Primary Care Provider Unavailable An Valdes engine head repairer Chaya Lott [facility] Health Worker Reason for Visit Reason Comments Follow-up Encounter Details Date Type Department Care Team Description 12/16/2018 Patient Outreach [facility] An Valdes, RN Follow-up [address] [id number] Allergies Active Allergy Reactions Severity Noted Date Comments Iodine Anaphylaxis 06/17/2018 Shellfish Derived Anaphylaxis High 04/29/2018 documented as of this encounter (statuses as of 12/16/2018) Medications Medication Sig Dispensed Refills Start Date End Date Status lisinopril 40 mg tablet Take 1 tablet by 30 tablet 2 05/01/2018 Active mouth daily. metFORMIN 500 mg tablet Take 1 tablet by 60 tablet 2 04/30/2018 Active mouth 2 (two) times daily with meals. amoxicillin 500 mg Take 2 capsules 56 capsule 0 06/22/2018 Active capsuleIndications: by mouth 2 (two) Dysphagia, unspecified times daily. type clarithromycin 500 mg Take 1 tablet by 28 tablet 0 06/22/2018 Active tabletIndications: mouth every 12 Dysphagia, unspecified (twelve) hours. type pantoprazole 40 mg EC Take 1 tablet by 14 tablet 0 06/23/2018 Active tabletIndications: mouth daily. Dysphagia, unspecified type lisinopril-hydrochlorot Take 2 tablets 0 Active hiazide 20-25 mg per by mouth daily. tablet amLODIPine (NORVASC) 10 Take 10 mg by 0 Active mg tablet mouth daily. documented as of this encounter (statuses as of 12/16/2018) Active Problems Problem Noted Date Esophageal mass 04/29/2018 documented as of this encounter (statuses as of 12/16/2018) Immunizations Name Administration Dates Next Due Influenza Virus Vaccine Quad .5 mL IM 6+ MO 04/30/2018 Pneumococcal Polysaccharide, PPSV23 (PNEUMOVAX) 04/30/2018 documented as of this encounter Social History Tobacco Use Types Packs/Day Years Used Date Former Smoker Smokeless Tobacco: Never Used Alcohol Use Drinks/Week oz/Week Comments Yes Sex Assigned at Date Recorded Not on file Job Start Date Occupation Industry Not on file Not on file Not on file Travel History Travel Start Travel End No recent travel history available. documented as of this encounter Last Filed Vital Signs Not on filedocumented in this encounter Progress Notes An Valdes RN - 12/16/2018 10:09 AM CDTCHP CM called the patient to f/u. The patient was getting ready to go to work and had not check his blood sugar this am. The patient denied need for additional logs for his blood sugars. The patient has not followed up with [facility] clinic. CM urged the patient to do so. CM will discuss potential dis-enrollment with [facility]. ILDA Zavaleta, RN, [facility] Outpatient Addictions Recovery SpecialistDirector Of Enterprise ArchitectureNovant Health [facility] Center O: [phone] M: [phone] documented in this encounter Plan of Treatment Health Maintenance Due Date Last Done Comments VARICELLA VACCINES (1 of 2 - 13+ 1994 2-dose series) DTaP,Tdap,and Td Vaccines (1 - 2000 Tdap) INFLUENZA VACCINE 01/08/2019 04/30/2018 PNEUMOCOCCAL 0-64 YEARS COMBINED Aged Out 04/30/2018 No longer eligible based on SERIES patient's age to complete this topic documented as of this encounter Results Not on filedocumented in this encounter
--- OUTSIDE RECORDS SUMMARY | 2019-01-18 10:16 | XMS REPORT | Summary of Care ---
:1980 Author Organization [address] [address] Care Team Providers Name Role Phone AndersJaqueline Debra Primary Care Provider Unavailable Reason for Visit Reason Comments Forms [facility] dis-enrollment Encounter Details Date Type Department Care Team Description 01/11/2019 Patient Outreach [facility] An Valdes RN Forms ([address] dis-enrollment) [place], [place] [id number] Allergies Active Allergy Reactions Severity Noted Date Comments Iodine Anaphylaxis 06/17/2018 Shellfish Derived Anaphylaxis High 04/29/2018 documented as of this encounter (statuses as of 01/11/2019) Medications Medication Sig Dispensed Refills Start Date [...] as of this encounter (statuses as of 01/11/2019) Active Problems Problem Noted Date Esophageal mass 04/29/2018 documented as of this encounter (statuses as of 01/11/2019) Immunizations Name Administration Dates Next Due Influenza [...] encounter Progress Notes An Valdes RN - 01/11/2019 11:51 AM CDTCHP is unable to f/u with the patient. The patient is not consistent with checking blood sugars and does not have regular f/u's with [facility] clinic. The patient will be dis-enrolled from [facility]. ILDA Zavaleta, RN, [facility] Outpatient Behavioral Health SpecialistWarehouse Assembly WorkerMission Hospital O: [phone] M: [phone] documented in this encounter Plan of Treatment Health Maintenance Due Date Last Done Comments VARICELLA VACCINES (1 of 2 - 13+ 1994 2-dose series) DTaP,Tdap,and Td Vaccines (1 - 2000 Tdap) INFLUENZA VACCINE (#1) 2019 04/30/2018 PNEUMOCOCCAL 0-64 YEARS COMBINED Aged Out 04/30/2018 No longer eligible based on SERIES patient's age to complete this topic documented as of this encounter Results Not on filedocumented in this encounter
--- OUTSIDE RECORDS SUMMARY | 2019-01-18 10:16 | XMS REPORT ---
:1980 [facility] Address [address] [place] [address] [address] [place] [address] Care Team Providers Name Role Phone Unavailable Unavailable Unavailable Payers Payer Name Policy Type Policy Number Effective Date Expiration Date Problems This patient has no known problems. Allergies, Adverse Reactions, Alerts Allergy Allergy Status Severity Reaction(s) Onset Inactive Treating Comments Name Type Date Date Clinician shellfish JEFF Active MO 2018-04 00:00:0 0 Medications This patient has no known medications.
[2019-01-18] MEDS ORDERED: HYDROCODONE/APAP 5/325 MG TAB ONE (11:46)
--- NOTE | 2019-01-18 11:46 | RAD REPORT ---
EXAM DESCRIPTION: RAD - Tib Fib Right - 01/18/2019 11:38 am CLINICAL HISTORY: PAIN COMPARISON: <Comparisons> FINDINGS: Right tibia/fibula and right ankle- multiple projections are submitted Soft tissue swelling is seen about the ankle. No fracture is identified. Large posterior calcaneal sp ur
--- NOTE | 2019-01-18 12:02 | ER ---
Nurse's Notes [facility] Name: Mandy Dee Age: 38 yrs Sex: Male : 1980 Arrival Date: 01/18/2019 Time: 10:12 Bed 16 Private MD: Diagnosis: Sprain of ankle Presentation: 01/18 11:04 Presenting complaint: Patient states: Slipped off of curb while walking to work, c/o ph pain to R leg, denies falling or other injury. Transition of care: patient was not received from another setting of care. Onset of symptoms was January 18, 2019. Risk Assessment: Do you want to hurt yourself or someone else? Patient reports no desire to harm self or others. Initial Sepsis Screen: Does the patient meet any 2 criteria? No. Patient's initial sepsis screen is negative. Does the patient have a suspected source of infection? No. Patient's initial sepsis screen is negative. Care prior to arrival: None. 11:04 Method Of Arrival: Wheelchair ph 11:04 Acuity: DEVON 4 ph Historical: - Allergies: 11:06 SHELLFISH; ph - Home Meds: 11:06 lisinopril Oral [Active]; Metformin Oral [Active]; ph - PMHx: 11:06 Diabetes - NIDDM; Hypertension; ph - PSHx: 11:06 None; ph - Immunization history:: Adult Immunizations unknown. - Social history:: Smoking status: Patient/guardian denies using tobacco. - Ebola Screening: : No symptoms or risks identified at this time. Screenin:07 Abuse screen: Denies threats or abuse. Denies injuries from another. Nutritional ph screening: No deficits noted. Tuberculosis screening: No symptoms or risk factors identified. Fall Risk None identified. Assessment: 11:30 General: Appears in no apparent distress. comfortable, obese, well groomed, Behavior is ph calm, cooperative, appropriate for age. Pain: Complains of pain in right ankle and lateral aspect of right calf. Neuro: Level of Consciousness is awake, alert, obeys commands, Oriented to person, place. Cardiovascular: Capillary refill < 3 seconds in bilateral fingers Patient's skin is warm and dry. Respiratory: Airway is patent Respiratory effort is even, unlabored, Respiratory pattern is regular, symmetrical. Derm: Skin is intact, is healthy with good turgor, Skin is pink, warm \T\ dry. Musculoskeletal: Amputation of Range of motion: intact in all extremities. 12:30 Reassessment: Patient appears in no apparent distress at this time. Patient and/or ph family updated on plan of care and expected duration. Pain level reassessed. Patient is alert, oriented x 3, equal unlabored respirations, skin warm/dry/pink. Pt resting quietly, awaiting Xray results. Vital Signs: 11:05 BP 167 / 87; Pulse 69; Resp 18; Temp 97.8; Pulse Ox 95% on R/A; Weight 208.65 kg; ph Height 6 ft. 2 in. (187.96 cm); 11:53 BP 184 / 85; Pulse 72; Resp 17; Temp 97.5(TE); Pulse Ox 97% on R/A; mh5 13:00 BP 175 / 84; Pulse 71; Resp 18; Temp 97.5; Pulse Ox 96% ; ph 11:05 Body Mass Index 59.06 (208.65 kg, 187.96 cm) ph ED Course: 10:12 Patient arrived in ED. as 10:14 Annalise Deluca FNP-C is PHCP. snw 10:14 Juanjose Rascon MD is Attending Physician. snw 10:57 Guadalupe Hernandez, BRENNAN is Primary Nurse. ph 11:05 Triage completed. ph 11:06 Arm band placed on Patient placed in an exam room, on a stretcher. ph 11:07 Patient has correct armband on for positive identification. Bed in low position. Call ph light in reach. Side rails up X 1. Pulse ox on. NIBP on. 11:37 X-ray completed. Portable x-ray completed in exam room. Patient tolerated procedure mh1 well. 11:40 Ankle Right 3 View XRAY In Process Unspecified. EDMS 11:40 Tib Fib Right XRAY In Process Unspecified. EDMS 13:10 Ortho shoe applied to right foot. ph 13:10 No provider procedures requiring assistance completed. Patient did not have IV access ph during this emergency room visit. Administered Medications: 12:30 Drug: [place] 5 mg-325 mg 1 tabs Route: PO; ph 13:10 Follow up: Response: No adverse reaction; Pain is decreased; RASS: Alert and Calm (0) ph Outcome: 12:01 Discharge ordered by . yoav 13:10 Discharged to home ambulatory, with significant other. ph 13:10 Condition: good 13:10 Discharge instructions given to patient, Instructed on discharge instructions, follow up and referral plans. medication usage, Demonstrated understanding of instructions, follow-up care, medications, Prescriptions given X 1. 13:15 Patient left the ED. ph Signatures: Dispatcher [employer] EDMS Annalise Deluca, PRICE-C VP [employer] Aleshia Boudreaux [facility] Jeannette Sainz Patricia, BRENNAN RN Alistair, [facility]
--- NOTE | 2019-01-18 12:02 | EDPHYS ---
Physician Documentation [facility] Name: Mandy Dee Age: 38 yrs Sex: Male : 1980 Arrival Date: 01/18/2019 Time: 10:12 Bed 16 Private MD: ED Physician Juanjose Rascon HPI: 01/18 11:04 This 38 yrs old Male presents to ER via Unassigned with complaints of Foot snw Injury. 11:04 The patient presents with an injury, pain, tenderness. The complaints affect the snw lateral aspect of right calf and right ankle. Context: The problem was sustained outdoors, resulted from a mis-step, the patient can partially bear weight, the patient is able to ambulate, Problem is a result from a previous injury: No. Onset: The symptoms/episode began/occurred suddenly, just prior to arrival. Associated signs and symptoms: The patient has no apparent associated signs or symptoms. Severity of symptoms: At their worst the symptoms were moderate. The patient has not experienced similar symptoms in the past. The patient has not recently seen a physician. pt walking in to work and foot slipped off curb, pt states he heard a pop and then was able to limp in to work. Pt states he did not fall to the ground. Denies other injury. Historical: - Allergies: 11:06 SHELLFISH; ph - Home Meds: 11:06 lisinopril Oral [Active]; Metformin Oral [Active]; ph - PMHx: 11:06 Diabetes - NIDDM; Hypertension; ph - PSHx: 11:06 None; ph - Immunization history:: Adult Immunizations unknown. - Social history:: Smoking status: Patient/guardian denies using tobacco. - Ebola Screening: : No symptoms or risks identified at this time. ROS: 11:04 Constitutional: Negative for fever, chills, and weight loss, Eyes: Negative for injury, snw pain, redness, and discharge, ENT: Negative for injury, pain, and discharge, Neck: Negative for injury, pain, and swelling, Cardiovascular: Negative for chest pain, palpitations, and edema, Respiratory: Negative for shortness of breath, cough, wheezing, and pleuritic chest pain, Abdomen/GI: Negative for abdominal pain, nausea, vomiting, diarrhea, and constipation, Back: Negative for injury and pain, : Negative for injury, bleeding, discharge, and swelling, Skin: Negative for injury, rash, and discoloration, Neuro: Negative for headache, weakness, numbness, tingling, and seizure, Psych: Negative for depression, anxiety, suicide ideation, homicidal ideation, and hallucinations. 11:04 MS/extremity: Positive for injury or acute deformity, tenderness. Exam: 11:03 Head/Face: Normocephalic, atraumatic. Eyes: Pupils equal round and reactive to light, snw extra-ocular motions intact. Lids and lashes normal. Conjunctiva and sclera are non-icteric and not injected. Cornea within normal limits. Periorbital areas with no swelling, redness, or edema. ENT: Nares patent. No nasal discharge, no septal abnormalities noted. Tympanic membranes are normal and external auditory canals are clear. Oropharynx with no redness, swelling, or masses, exudates, or evidence of obstruction, uvula midline. Mucous membranes moist. Neck: Trachea midline, no thyromegaly or masses palpated, and no cervical lymphadenopathy. Supple, full range of motion without nuchal rigidity, or vertebral point tenderness. No Meningismus. Chest/axilla: Normal chest wall appearance and motion. Nontender with no deformity. No lesions are appreciated. Cardiovascular: Regular rate and rhythm with a normal S1 and S2. No gallops, murmurs, or rubs. Normal PMI, no JVD. No pulse deficits. Respiratory: Lungs have equal breath sounds bilaterally, clear to auscultation and percussion. No rales, rhonchi or wheezes noted. No increased work of breathing, no retractions or nasal flaring. Abdomen/GI: Soft, non-tender, with normal bowel sounds. No distension or tympany. No guarding or rebound. No evidence of tenderness throughout. Back: No spinal tenderness. No costovertebral tenderness. Full range of motion. Skin: Warm, dry with normal turgor. Normal color with no rashes, no lesions, and no evidence of cellulitis. Neuro: Awake and alert, GCS 15, oriented to person, place, time, and situation. Cranial nerves II-XII grossly intact. Motor strength 5/5 in all extremities. Sensory grossly intact. Cerebellar exam normal. Normal gait. Psych: Awake, alert, with orientation to person, place and time. Behavior, mood, and affect are within normal limits. 11:03 Constitutional: The patient appears alert, awake, obese. 11:03 Musculoskeletal/extremity: Extremities: grossly normal except: noted in the lateral aspect of right calf: tenderness. Vital Signs: 11:05 BP 167 / 87; Pulse 69; Resp 18; Temp 97.8; Pulse Ox 95% on R/A; Weight 208.65 kg; ph Height 6 ft. 2 in. (187.96 cm); 11:53 BP 184 / 85; Pulse 72; Resp 17; Temp 97.5(TE); Pulse Ox 97% on R/A; mh5 13:00 BP 175 / 84; Pulse 71; Resp 18; Temp 97.5; Pulse Ox 96% ; ph 11:05 Body Mass Index 59.06 (208.65 kg, 187.96 cm) ph MDM: 10:50 Patient medically screened. snw 12:03 Data reviewed: vital signs, nurses notes. Data interpreted: Pulse oximetry: on room air snw is 97 %. Interpretation: normal. Counseling: I had a detailed discussion with the patient and/or guardian regarding: the historical points, exam findings, and any diagnostic results supporting the discharge/admit diagnosis, the presence of at least one elevated blood pressure reading (>120/80) during this emergency department visit, radiology results, the need for outpatient follow up, for definitive care, to return to the emergency department if symptoms worsen or persist or if there are any questions or concerns that arise at home. Response to treatment: the patient's symptoms have mildly improved after treatment. Special discussion: I have referred the patient to see his PCP for further evaluation of high blood pressure. Based on the history and exam findings, there is no indication for further emergent testing or inpatient evaluation. I discussed with the patient/guardian the need to see the primary care provider for further evaluation of the symptoms. 01/18 11:01 Order name: Ankle Right 3 View XRAY; Complete Time: 12:41 snw 01/18 11:04 Order name: Tib Fib Right XRAY; Complete Time: 12:00 snw 01/18 12:03 Order name: Walking boot; Complete Time: 13:10 snw Administered Medications: 12:30 Drug: Wallace 5 mg-325 mg 1 tabs Route: PO; ph 13:10 Follow up: Response: No adverse reaction; Pain is decreased; RASS: Alert and Calm (0) ph Disposition: 01/18/19 12:01 Discharged to Home. Impression: Sprain of ankle. - Condition is Stable. - Discharge Instructions: Elastic Bandage and RICE, Ankle Sprain, Cast or Splint Care, Adult, Ankle Pain, Cryotherapy, Heat Therapy. - Prescriptions for Mobic 7.5 mg Oral Tablet - take 1 tablet by ORAL route once daily take with food; 20 tablet. - Work release form, Medication Reconciliation Form, Thank You Letter, Antibiotic Education, Prescription Opioid Use form. - Follow up: Private Physician; When: 2 - 3 days; Reason: Recheck today's complaints, Continuance of care, Re-evaluation by your physician. Follow up: Emergency Department; When: As needed; Reason: Worsening of condition. Addendum: 01/23/2019 09:41 Co-signature as Attending Physician, Juanjose Rascon MD I agree with the assessment and k dr plan of care. Signatures: Dispatcher [employer] EDRI Juanjose Rascon MD MD [facility] Annalise Deluca, HEAD BOYS GOLF COACH-C HEAD BO[employer] GOLF COACH-Csnw Guadalupe Hernandez RN RN ph Corrections: (The following items were deleted from the chart) 01/18 13:15 12:01 01/18/2019 12:01 Discharged to Home. Impression: Sprain of ankle. Condition is ph Stable. Forms are Medication Reconciliation Form, Thank You Letter, Antibiotic Education, Prescription Opioid Use. Follow up: Private Physician; When: 2 - 3 days; Reason: Recheck today's complaints, Continuance of care, Re-evaluation by your physician. Follow up: Emergency Department; When: As needed; Reason: Worsening of condition. snw
--- NOTE | 2019-01-18 12:30 | RAD REPORT ---
EXAM DESCRIPTION: RAD - Ankle Right 3 View - 01/18/2019 11:38 am CLINICAL HISTORY: PAIN COMPARISON: None FINDINGS: Right tibia/fibula and right ankle- multiple projections are submitted Soft tissue swelling is seen about the ankle. No fracture is identified. Large posterior calcaneal sp ur
[2019-01-18 13:22] VITALS: BP 184/85; TEMP 97.5; O2SAT 97
== END 2019-01-18 13:15 | disposition home or self-care (01) ==
LOC: ER 10:11
DX: S93.401A Sprain of unspecified ligament of right ankle, initial encounter (principal); X58.XXXA Exposure to other specified factors, initial encounter; Y93.01 Activity, walking, marching and hiking; Y92.89 Other specified places as the place of occurrence of the external cause; Z91.013 Allergy to seafood; I10 Essential (primary) hypertension; E11.9 Type 2 diabetes mellitus without complications
CPT/HCPCS: 99284

== ENCOUNTER 2020-04-21 16:44 | Inpatient (IN) | payer SELFPAY ==
--- OUTSIDE RECORDS SUMMARY | 2020-04-21 16:47 | XMS REPORT | Continuity of Care Document ---
:1980 Author Organization [facility] t Address [address] [place] [address] Care Team Providers Name Role Phone An Valdes RN Attending Clinician Payers Payer Name Policy Type Policy Number Effective Date Expiration Date S ource Problems This patient has no known problems. Allergies, Adverse Reactions, Alerts Allergy Allergy Status Severity Reaction(s) Onset Inactive Treating Comm ents Source Name Type Date Date Clinician olvin AGUILAR Active [place] 2017-05 [facility] h 2-21 [place] derived 00:00: d 00 [facility] Medications This patient has no known medications. Procedures This patient has no known procedures. Encounters Start End Encounter Admission Attending Care Care Encounter Source Date/Time Date/Time Type Type Clinicians Facility Department ID 2019-01-11 2019-01-11 Patient Lucio An Troncoso [id number] 00:00:00 00:00:00 Outreach E Morales [id number] Arthur [id number] 2018-12-16 2018-12-16 Patient Lucio An Troncoso [id number] 00:00:00 00:00:00 Outreach E Morales [id number] Arthur [id number] Results This patient has no known results.
[2020-04-21] MEDS ORDERED: ACETAMINOPHEN 500 MG TAB ONE (17:17)
[2020-04-21] MEDS ORDERED: NA CHLORIDE 0.9% 2,000 ML ONE (17:17)
[2020-04-21 17:34] LABS: Absolute Lymphocytes (CBC) 0.6 K/uL (0.7-4.9); Basophils % 0.3 % (0-1.3); Hematocrit 39.9 % (39.6-49.0); Lymphocytes % 3.2 % (15.3-44.8); MPV 7.3 fL (7.6-11.3); RBC Red Blood Cell Count 4.86 M/uL (4.33-5.43)
[2020-04-21 17:35] LABS: Protime INR 1.11
[2020-04-21 17:51] LABS: ALT/SGPT 48 U/L (12-78); AST/SGOT 37 U/L (15-37); Albumin 2.9 g/dL (3.4-5.0); Alkaline Phosphatase 103 U/L (45-117); BUN Blood Urea Nitrogen 15 mg/dL (7-18); Bicarbonate 32 mmol/L (21-32); Bilirubin Direct 0.1 mg/dL (0-0.2); Bilirubin Total 0.3 mg/dL (0.2-1.0); Glucose Level 244 mg/dL (74-106); Lipase 109 U/L (73-393); Magnesium 1.6 mg/dL (1.8-2.4); NT PRO-BNP 56 pg/mL (<125); Protein, Total 8.2 g/dL (6.4-8.2); Sodium Level 137 mmol/L (136-145); Troponin (Emerg Dept Use Only) < 0.02 ng/mL (0.0-0.045)
--- NOTE | 2020-04-21 18:34 | EDPHYS ---
Physician Documentation [facility] Name: Mandy Dee Age: 39 yrs Sex: Male : 1980 Arrival Date: 04/21/2020 Time: 16:47 Bed 2 Private MD: ED Physician Mohinder Rodriguez HPI: 04/21 17:00 This 39 yrs old Male presents to ER via EMS with complaints of Shortness Of cp Breath. Historical: - Allergies: 16:47 SHELLFISH; aa5 - Home Meds: 16:47 lisinopril Oral [Active]; Metformin Oral [Active]; Labetalol Oral [Active]; aa5 - PMHx: 16:47 Diabetes - NIDDM; Hypertension; aa5 - Immunization history:: Adult Immunizations not up to date. - Social history:: Smoking status: unknown. ROS: 17:05 Constitutional: Positive for chills, fever. cp 17:05 Eyes: Negative for injury, pain, redness, and discharge. cp 17:05 Neck: Negative for pain with movement, pain at rest, stiffness. 17:05 Cardiovascular: Negative for chest pain, palpitations. 17:05 Respiratory: Positive for shortness of breath. 17:05 Abdomen/GI: Positive for abdominal pain, Negative for vomiting, diarrhea, constipation. 17:05 MS/extremity: Positive for pain, of the right lower leg. 17:05 Neuro: Negative for altered mental status, headache, weakness. 17:05 All other systems are negative. Exam: 17:00 ECG was reviewed by the Attending Physician. cp 17:08 Constitutional: The patient appears in no acute distress, alert, awake, cp non-diaphoretic, non-toxic, well developed, well nourished, morbid obesity 17:08 Head/Face: Normocephalic, atraumatic. cp 17:08 Eyes: Periorbital structures: appear normal, Conjunctiva: normal, no exudate, no injection, Sclera: no appreciated abnormality, Lids and lashes: appear normal, bilaterally. 17:08 ENT: External ear(s): are unremarkable, Nose: is normal, Posterior pharynx: Airway: no evidence of obstruction, patent. 17:08 Neck: ROM/movement: is normal, is supple, without pain, no range of motions limitations, no meningismus. 17:08 Chest/axilla: Inspection: normal, Palpation: is normal, no crepitus, no tenderness. 17:08 Cardiovascular: Rate: tachycardic, Rhythm: regular, JVD: is not appreciated. 17:08 Respiratory: mild respiratory distress is noted, Respirations: shallow respirations, that is mild, Breath sounds: are clear throughout, no decreased breath sounds, no stridor, no wheezing. 17:08 Abdomen/GI: Inspection: obese Bowel sounds: active, all quadrants, Palpation: soft, in all quadrants, mild abdominal tenderness, in the right upper quadrant, rebound tenderness, is not appreciated, voluntary guarding, is not appreciated, involuntary guarding, is not appreciated. 17:08 Back: pain, is absent, ROM is normal. 17:08 Skin: cellulitis, irregular, on the lateral aspect right lower leg, induration, is not appreciated. 17:08 Neuro: Orientation: to person, place \T\ time. Mentation: is normal, Motor: moves all fours, strength is normal. Vital Signs: 16:47 BP 161 / 84; Pulse 127; Resp 28 S; Temp 103.3(O); Pulse Ox 91% on R/A; Weight 263.08 kg aa5 (R); 19:09 BP 165 / 77; Pulse 129; Resp 15; Temp 102.2; Pulse Ox 90% ; jl7 19:10 BP 165 / 77; Pulse 128; Resp 24; Pulse Ox 90% ; ea 20:48 BP 160 / 66; Pulse 118; Resp 24; Temp 100.4; Pulse Ox 95% on 2 lpm NC; ea 21:15 BP 147 / 64; Pulse 110; Resp 22; Pulse Ox 95% 2 lpm ; ea MDM: 16:52 Patient medically screened. cp 18:20 Data reviewed: vital signs, nurses notes, lab test result(s), EKG, radiologic studies, cp plain films, ultrasound. 18:20 Antibiotic administration: Cefepime and Vancomycin. Test interpretation: by ED cp physician or midlevel provider: ECG, chest xray negative for infiltrates. Physician consultation: Bert [facility] was contacted at 18:20, regarding admission, to the telemetry unit. patient's condition, and will see patient in ED, shortly. 04/21 16:58 Order name: Basic Metabolic Panel; Complete Time: 18:01 cp 12/13 18:06 Interpretation: Normal except: GLUC 244; GFR 69. cp 12/13 16:58 Order name: CBC with Diff; Complete Time: 22:13 cp 12/13 18:07 Interpretation: Normal except: WBC 19.5; HGB 12.7; MCV 82.0; MCH 26.1; MCHC 31.9; RDW cp 15.3; MPV 7.3; ELIDA% 93.4; LYM% 3.2; MN% 2.7; NEUT A 18.2; LYMA 0.6. 12/ 16:58 Order name: LFT's; Complete Time: 18:01 cp /13 16:58 Order name: Magnesium; Complete Time: 18:01 cp 12/13 16:58 Order name: NT PRO-BNP; Complete Time: 18:01 cp 12/13 16:58 Order name: PT-INR; Complete Time: 18:01 cp /13 16:58 Order name: Troponin (emerg Dept Use Only); Complete Time: 18:01 cp /13 16:58 Order name: Lactate; Complete Time: 18:06 cp 12/13 18:06 Interpretation: Abnormal: LAC 2.8. cp /13 16:58 Order name: Influenza Screen (a \T\ B); Complete Time: 19:22 cp /13 16:58 Order name: Procalcitonin; Complete Time: 18:06 cp 12/13 16:58 Order name: Blood Culture Adult (2) cp /13 16:58 Order name: Urine Microscopic Only; Complete Time: 19:13 cp /13 16:58 Order name: Lipase; Complete Time: 18:01 cp 12/13 16:58 Order name: XRAY Chest (1 view); Complete Time: 19:24 cp 12/13 16:58 Order name: EKG; Complete Time: 16:59 cp 12/13 16:58 Order name: Cardiac monitoring; Complete Time: 17:27 cp 12/13 16:58 Order name: US Extremity Venous W Compression Oumar; Complete Time: 19:22 cp 12/13 16:58 Order name: US Abdomen Limited: RUQ; Complete Time: 19:22 cp 13 18:30 Order name: Urine Dipstick--Ancillary (enter results); Complete Time: 22:13 em1 04/21 20:01 Order name: CBC Smear Scan; Complete Time: 22:13 EDMS 04/21 20:06 Order name: SARS-COV-2 RT PCR; Complete Time: 22:13 EDMS 04/21 20:59 Order name: Lactate Sepsis 2 HR Follow-up; Complete Time: 22:13 EDMS 04/21 16:58 Order name: EKG - Nurse/Tech; Complete Time: 17:36 cp 04/21 16:58 Order name: IV Saline Lock; Complete Time: 17:27 cp 04/21 16:58 Order name: Labs collected and sent; Complete Time: 17:27 cp 04/21 16:58 Order name: O2 Per Protocol; Complete Time: 17:28 cp 04/21 16:58 Order name: O2 Sat Monitoring; Complete Time: 17:28 cp 04/21 16:58 Order name: Urine Dipstick-Ancillary (obtain specimen); Complete Time: 18:27 cp EC:00 Rate is 128 beats/min. Rhythm is regular. OH interval is normal. QRS interval is cp normal. QT interval is normal. T waves are Inverted in lead aVR. Interpreted by me. Reviewed by me. Administered Medications: 17:10 Drug: Tylenol 1000 mg Route: PO; jl7 18:30 Follow up: Response: No adverse reaction; Temperature is decreased jl 17:15 Drug: NS 0.9% 1000 ml Route: IV; Rate: 1 bolus; Site: left antecubital; jl7 18:00 Follow up: Response: No adverse reaction; IV Status: Completed infusion; IV Intake: jl7 1000ml 17:26 Drug: NS 0.9% 1000 ml Route: IV; Rate: 1 bolus; Site: left antecubital; jl7 19:09 Follow up: Response: No adverse reaction; IV Status: Completed infusion; IV Intake: jl7 1000ml 18:45 Drug: Cefepime 2 grams Route: IVPB; Rate: 200 ml/hr; Infused Over: 30 mins; Site: right jl7 antecubital; 18:53 Follow up: Response: No adverse reaction; IV Status: Completed infusion jl7 18:45 Drug: NS 0.9% 1000 ml Route: IV; Rate: 1 bolus; Site: right antecubital; jl7 21:22 Follow up: Response: No adverse reaction; IV Status: Completed infusion; IV Intake: ea 2000ml 18:55 Drug: vancoMYCIN 2 grams Route: IVPB; Rate: calculated rate; Site: right antecubital; jl7 21:22 Follow up: Response: No adverse reaction; IV Status: Completed infusion ea 19:00 Drug: Zofran (Ondansetron) 4 mg Route: IVP; Site: right antecubital; jl7 19:07 Follow up: Response: No adverse reaction; Nausea is decreased jl7 Disposition: 04/22 10:54 Co-signature as Attending Physician, Mohinder Rodriguez MD I agree with the assessment and delvin plan of care. Disposition: 04/21/20 18:34 Hospitalization ordered by Annelise Johnson for Inpatient Admission. Preliminary diagnosis are Other sepsis, Cellulitis of right lower limb. - Bed requested for Telemetry/MedSurg (Inpatient). - Status is Inpatient Admission. ea - Condition is Fair. - Problem is new. - Symptoms have improved. Signatures: Dispatcher [employer] [facility] Mohinder Rodriguez MD MD cha Calderon, Audri, RN RN aa5 Bert Rock, RETAIL PHARMACIST-C RETAIL PHARMACIST-Cla1 Mohinder Smith PA PA cp Briseyda Cabezas, Juan Rene RN, RN RN jl7 Marie Crane RN RN ea Corrections: (The following items were deleted from the chart) 04/21 18:59 16:59 CORONAVIRUS+ ordered. [facility] 20:35 18:34 Hospitalization Ordered by Annelise Johnson MD for Inpatient Admission. Preliminary cg diagnosis is Other sepsis; Cellulitis of right lower limb. Bed requested for Telemetry/MedSurg (Inpatient). Status is Inpatient Admission. Condition is Fair. Problem is new. Symptoms have improved. cp 21:28 20:35 04/21/2020 18:34 Hospitalization Ordered by Annelise Johnson MD for Inpatient ea Admission. Preliminary diagnosis is Other sepsis; Cellulitis of right lower limb. Bed requested for Telemetry/MedSurg (Inpatient). Status is Inpatient Admission. Condition is Fair. Problem is new. Symptoms have improved. cg
--- NOTE | 2020-04-21 18:34 | ER ---
Nurse's Notes [facility] Name: Mandy Dee Age: 39 yrs Sex: Male : 1980 Arrival Date: 04/21/2020 Time: 16:47 Bed 2 Private MD: Diagnosis: Other sepsis;Cellulitis of right lower limb Presentation: 04/21 16:47 Chief complaint: EMS states: Sudden onset of SOB x 2 hours ago. EMS reports BP of aa5 208/88, HR 144, O2 sat 93% RA upon their arrival. EMS reports giving ASA 324mg and Nitro x 1. Pt has not taken home meds in approximately 1 year (Lisinopril, metformin, labetalol). Pt denies cough. Pt also reports abdominal pain. 16:47 Acuity: DEVON 2 aa5 16:47 Method Of Arrival: EMS: [facility] aa5 16:47 Coronavirus screen: fever, shaking with chills, shortness of breath, Client presents aa5 with at least one sign or symptom that may indicate coronavirus-19. Standard/surgical mask placed on the client. Provider contacted for isolation considerations. Ebola Screen: Patient negative for fever greater than or equal to 101.5 degrees Fahrenheit, and additional compatible Ebola Virus Disease symptoms. Initial Sepsis Screen: Does the patient meet any 2 criteria? RR > 20 per min. HR > 90 bpm. Does the patient have a suspected source of infection? Yes:. Risk Assessment: Do you want to hurt yourself or someone else? Patient reports no desire to harm self or others. Onset of symptoms was April 21, 2020. 16:47 Care prior to arrival: IV initiated. 18 GA, in the right antecubital area. aa5 Historical: - Allergies: 16:47 SHELLFISH; aa5 - Home Meds: 16:47 lisinopril Oral [Active]; Metformin Oral [Active]; Labetalol Oral [Active]; aa5 - PMHx: 16:47 Diabetes - NIDDM; Hypertension; aa5 - Immunization history:: Adult Immunizations not up to date. - Social history:: Smoking status: unknown. Screenin:00 Abuse screen: Denies threats or abuse. Denies injuries from another. Nutritional jl7 screening: No deficits noted. Tuberculosis screening: No symptoms or risk factors identified. Fall Risk IV access (20 points). Total Alonzo Fall Scale indicates No Risk (0-24 pts). Assessment: 17:00 General: Appears in no apparent distress. uncomfortable, ill, Behavior is calm, jl7 cooperative, appropriate for age. Pain: Complains of pain in epigastric area Pain currently is 10 out of 10 on a pain scale. Pain began 4 hours ago. Neuro: Level of Consciousness is awake, alert, obeys commands, Oriented to person, place, time, situation. Cardiovascular: Patient's skin is warm and dry. Rhythm is sinus tachycardia. Respiratory: Airway is patent Respiratory effort is even, unlabored, Respiratory pattern is symmetrical, tachypnea. GI: Abdomen is non-distended, obese. Derm: Skin is pink, warm \T\ dry. 18:00 Reassessment: Patient appears in no apparent distress at this time. No changes from jl7 previously documented assessment. Patient and/or family updated on plan of care and expected duration. Pain level reassessed. Patient is alert, oriented x 3, equal unlabored respirations, skin warm/dry/pink. 19:31 General: Appears in no apparent distress. Behavior is appropriate for age. Pain: ea Complains of pain in epigastric area. Neuro: Level of Consciousness is awake, alert, obeys commands, Oriented to person, place, time, situation. Cardiovascular: Patient's skin is warm and dry. Respiratory: Airway is patent Respiratory effort is even, unlabored, Respiratory pattern is symmetrical, tachypnea. Derm: Skin is dry, Skin is pale, Skin temperature is warm. 21:26 Reassessment: Patient and/or family updated on plan of care and expected duration. Pain ea level reassessed. Pt alert and oriented, respirations even and unlabored, pt remains on O 2 at 2L per nasal cannula. Pt admitted to fourth floor, report called to receiving nurse. Pt left ED via hospital bed, per tech. Pt tolerating well. Vital Signs: 16:47 BP 161 / 84; Pulse 127; Resp 28 S; Temp 103.3(O); Pulse Ox 91% on R/A; Weight 263.08 kg aa5 (R); 19:09 BP 165 / 77; Pulse 129; Resp 15; Temp 102.2; Pulse Ox 90% ; jl7 19:10 BP 165 / 77; Pulse 128; Resp 24; Pulse Ox 90% ; ea 20:48 BP 160 / 66; Pulse 118; Resp 24; Temp 100.4; Pulse Ox 95% on 2 lpm NC; ea 21:15 BP 147 / 64; Pulse 110; Resp 22; Pulse Ox 95% 2 lpm ; ea ED Course: 16:47 Patient arrived in ED. em1 16:47 Arm band placed on. aa5 16:51 Mohinder Smith PA is PHCP. cp 16:51 Mohinder Rodriguez MD is Attending Physician. cp 16:57 Triage completed. aa5 17:12 First set of blood cultures drawn by me. aa5 17:12 Maintain EMS IV. Good blood return noted. Site clean \T\ dry. Gauge \T\ site: 18G R AC. aa 5 17:22 Second set of blood cultures drawn by me. Inserted saline lock: 20 gauge in left aa5 antecubital area, using aseptic technique. 17:26 Juan Cano RN is Primary Nurse. jl7 17:30 EKG done, by ED staff, reviewed by Mohinder KATE COVID swab sent to lab. Flu and/or RSV jl7 swab sent to lab. 18:00 Patient has correct armband on for positive identification. Bed in low position. Call jl7 light in reach. Side rails up X 1. front desk monitor on. Pulse ox on. NIBP on. 18:19 XRAY Chest (1 view) In Process Unspecified. EDMS 18:24 US Extremity Venous W Compression Oumar In Process Unspecified. EDMS 18:24 US Abdomen Limited: RUQ In Process Unspecified. EDMS 18:33 Annelise Johnson MD is Hospitalizing Provider. cp 20:47 No provider procedures requiring assistance completed. Patient admitted, IV remains in ea place. Administered Medications: 17:10 Drug: Tylenol 1000 mg Route: PO; jl7 18:30 Follow up: Response: No adverse reaction; Temperature is decreased jl7 17:15 Drug: NS 0.9% 1000 ml Route: IV; Rate: 1 bolus; Site: left antecubital; jl7 18:00 Follow up: Response: No adverse reaction; IV Status: Completed infusion; IV Intake: jl7 1000ml 17:26 Drug: NS 0.9% 1000 ml Route: IV; Rate: 1 bolus; Site: left antecubital; jl7 19:09 Follow up: Response: No adverse reaction; IV Status: Completed infusion; IV Intake: jl7 1000ml 18:45 Drug: Cefepime 2 grams Route: IVPB; Rate: 200 ml/hr; Infused Over: 30 mins; Site: right jl7 antecubital; 18:53 Follow up: Response: No adverse reaction; IV Status: Completed infusion jl7 18:45 Drug: NS 0.9% 1000 ml Route: IV; Rate: 1 bolus; Site: right antecubital; jl7 21:22 Follow up: Response: No adverse reaction; IV Status: Completed infusion; IV Intake: ea 2000ml 18:55 Drug: vancoMYCIN 2 grams Route: IVPB; Rate: calculated rate; Site: right antecubital; jl7 21:22 Follow up: Response: No adverse reaction; IV Status: Completed infusion ea 19:00 Drug: Zofran (Ondansetron) 4 mg Route: IVP; Site: right antecubital; jl7 19:07 Follow up: Response: No adverse reaction; Nausea is decreased [facility] Intake: 18:00 IV: 1000ml; Total: 1000ml. jl7 19:09 IV: 1000ml; Total: 2000ml. jl7 21:22 IV: 2000ml; Total: 4000ml. ea Outcome: 18:34 Decision to Hospitalize by Provider. cp 20:47 Condition: stable ea 20:47 Instructed on the need for admit. 21:21 Admitted to Med/surg accompanied by tech, room 407, with chart, Report called to ea Receiving nurse on fourth 21:28 Patient left the ED. ea Signatures: Dispatcher [employer] EDTristan Coronel em1 Rissa Beltran, RN RN aa5 Mohinder Smith PA PA Juan Cameron RN RN jl7 Marie Crane RN RN ea Corrections: (The following items were deleted from the chart) 16:58 16:47 Chief complaint: EMS states: Sudden onset of SOB x 2 hours ago. EMS reports BP of aa5 208/88, HR 144, O2 sat 93% RA upon their arrival. EMS reports giving ASA 324mg and Nitro x 1. Pt has not taken home meds in approximately 1 year (Lisinopril, metformin, labetalol). aa5 16:59 16:47 Chief complaint: EMS states: Sudden onset of SOB x 2 hours ago. EMS reports BP of aa5 208/88, HR 144, O2 sat 93% RA upon their arrival. EMS reports giving ASA 324mg and Nitro x 1. Pt has not taken home meds in approximately 1 year (Lisinopril, metformin, labetalol). Pt denies cough. aa5 16:59 16:47 Coronavirus screen: fever, shaking with chills, shortness of breath, Client aa5 presents with at least one sign or symptom that may indicate coronavirus-19. Standard/surgical mask placed on the client. Provider contacted for isolation considerations. aa5
[2020-04-21] MEDS ORDERED: NA CHLORIDE 0.9% 1,000 ML ONE (18:54)
[2020-04-21] MEDS ORDERED: VANCOMYCIN 1 GM/VIAL ONE (18:54)
[2020-04-21] MEDS ORDERED: NA CHLORIDE 0.9% 500 ML ONE (18:55)
[2020-04-21] MEDS ORDERED: CEFEPIME/SWI 1gm 20 ML ONE (18:55)
[2020-04-21 19:07] LABS: Urine Bacteria <20 /HPF (NONE SEEN); Urine RBC <5 /HPF (NONE SEEN)
[2020-04-21] MEDS ORDERED: ONDANSETRON 4 MG/2 ML VIAL ONE (19:15)
--- NOTE | 2020-04-21 19:16 | P.HP ---
Certification for Inpatient Patient admitted to: Inpatient With expected LOS: >2 Midnights Patient will require the following post-hospital care: None Practitioner: I am a practitioner with admitting privileges, knowledge of patient current condition, hospital course, and medical plan of care. Services: Services provided to patient in accordance with Admission requirements found in Title 42 Section 412.3 of the Code of Federal Regulations <Bert Rock - Last Filed: 04/21/20 19:09> Patient History Date of Service: 04/21/20 Primary Care Provider: None Reason for admission: Sepsis History of Present Illness: 31-year-old male with history of diabetes, hypertension, morbid obesity, medical noncompliant presents to the emergency department for shortness of breath and epigastric pain. Patient noted to be tachycardic, febrile at presentation to the emergency department. Initial vital signs blood pressure 161/84, heart rate 127, temperature 103.3, 91% on room air. Patient is 263 kilos. Patient was evaluated in the emergency department with full sepsis workup, venous ultrasound right bilateral, ultrasound right upper quadrant. Patient body habitus not suitable for CT scan. Labs reveal white blood cell count 19.5 with left shift, hemoglobin 12.7 hematocrit 39.9 initial lactate 2.8. Liver enzymes within normal limits, lipase normal. Magnesium 1.6 pro calcitonin 0.36. Ultrasound bilateral lower extremities negative for DVT but unable to visualize CFV due to body habitus. Ultrasound right upper quadrant reveals gallbladder stone near the neck of the gallbladder but without pericholecystic fluid, wall thickening, CBD dilatation. Right lower extremity does appear to be cellulitic although this is difficult to distinguish due to patient's body habitus and skin color. Patient does have tenderness to the right lower extremity versus the left lower extremity and does appear to be erythematous in comparison. On exam patient with mild epigastric and right upper quadrant tenderness. Patient given sepsis fluids with vanc/cefepime in the emergency department ED provider wishes to admit for further evaluation and management. When I saw the patient in the ER he was awake, alert, oriented x3. Patient still tachycardic with a rate around 127 sinus rhythm. Patient is hypertensive, reports frequent urination but this is likely due to diabetes as there is no sign of infection on the urinalysis. General surgery called, case discussed. Doubt this is related to cholecystitis but will continue with full liquid diet and Zosyn. Patient will be seen by general surgery. Will trend lactate. - Past Medical/Surgical History Diabetic: Yes -: NIDDM -: HTN -: Throat biopsy Psychosocial/ Personal History: Patient lives at home with his and other family. - Family History Father -: Stroke Mother -: Stroke - Social History Smoking Status: Never smoker Alcohol use: No CD- Drugs: Yes Caffeine use: No Place of Residence: Home <Bert Rock - Last Filed: 04/21/20 19:09> Date of Service: 04/21/20 <Annelise Johnson - Last Filed: 04/27/20 06:52> Allergies shellfish derived Allergy (Severe, Verified 04/21/20 22:31) Shortness of breath Home Medications: NK [No Home Meds] 04/21/20 Review of Systems 10-point ROS is otherwise unremarkable General: Fever, Chills, Malaise Respiratory: Shortness of Breath Gastrointestinal: Nausea, Abdominal Pain Genitourinary: Frequency <Bert Rock - Last Filed: 04/21/20 19:09> Physical Examination - Physical Exam General: Alert, In no apparent distress, Oriented x3 HEENT: Atraumatic, Normocephalic, Other (Mucous membranes dry) Neck: Supple Respiratory: Clear to auscultation bilaterally, Diminished (Bilaterally) Cardiovascular: Edema (Bilateral lower extremities), Irregular heart rate/rhythm (Sinus tachycardia rate 127) Capillary refill: <2 Seconds Gastrointestinal: Normal bowel sounds, No ascites, No rebound, No guarding, Tenderness (Mild epigastric and right upper quadrant tenderness) Musculoskeletal: No contractures Integumentary: Tenderness/swelling (Swelling to bilateral lower extremities with tenderness to the right lower extremity), Erythema (Right lower extremity), Warmth (Right lower extremity) Neurological: Normal speech, Normal strength at 5/5 x4 extr, Normal tone, Sensation intact - Studies Laboratory Data (last 24 hrs) 04/21/20 17:15: PT 13.1 H, INR 1.11 04/21/20 17:15: WBC 19.5 H, Hgb 12.7 L, Hct 39.9, Plt Count 292 04/21/20 17:15: Sodium 137, Potassium 4.0, BUN 15, Creatinine 1.18, Glucose 244 H, Magnesium 1.6 L D, Total Bilirubin 0.3, AST 37, ALT 48, Alkaline Phosphatase 103, Lipase 109 <Bert Rock - Last Filed: 04/21/20 19:09> Assessment and Plan - Plan Assessment Sepsis secondary to cellulitis of the right lower extremity Abdominal pain, cholelithiasis Dyspnea Diabetes mellitus type 2-uncontrolled Hypertension-uncontrolled Morbid obesity Plan Sepsis secondary to cellulitis of the right lower extremity: Ultrasound bilateral lower extremities negative for DVT but unable to visualize CFV due to body habitus. Continue with IV Zosyn for broad-spectrum coverage in case sepsis is related to cholecystitis. General surgery consulted, case discussed. Continue DVT prophylaxis SCDs at this time. Will trend lactate, daily CBC. Abdominal pain, cholelithiasis: LFTs normal, lipase normal, ultrasound shows cholelithiasis without cholecystitis findings. Continue to monitor closely with serial abdominal exams. General surgery consult in place. Continue with Zosyn. Appreciate further input from general surgery. Dyspnea: Chest x-ray unremarkable, could be related to body habitus. COVID test pending. Aggressive fluid resuscitation required for sepsis, will need to monitor patient's respiratory status. Patient will be difficult airway if one is necessary. Diabetes mellitus type 2-uncontrolled: A.c. HS Accu-Cheks, sliding scale insulin therapy. A1c with morning labs. Patient previously took metformin but has been noncompliant for the past 1 year. Hypertension-uncontrolled: Patient with sepsis, will monitor blood pressure closely. Hold blood pressure medications at this time. Morbid obesity: Discussed lifestyle changes. Discharge Plan: Home Plan to discharge in: Greater than 2 days - Advance Directives Does patient have a Living Will: No Does patient have a Durable POA for Healthcare: No - Code Status/Comfort Care Code Status Assessed: Yes (Full code) Critical Care: No Time Spent Managing Pts Care (In Minutes): 55 <Bert Rock - Last Filed: 04/21/20 19:09> - Problems (Diagnosis) (1) Cellulitis of right lower extremity Current Visit: Yes Status: Acute (2) Abdominal pain Current Visit: Yes Status: Acute (3) Morbid obesity with BMI of 70 and over, adult Current Visit: Yes Status: Acute (4) Diabetes mellitus Current Visit: No Status: Chronic Qualifiers: Diabetes mellitus type: type 2 Diabetes mellitus longterm insulin use: without longterm use Diabetes mellitus complication status: without complication Qualified Code(s): E11.9 - Type 2 diabetes mellitus without complications (5) Hypertension Current Visit: No Status: Chronic Qualifiers: Hypertension type: essential hypertension Qualified Code(s): I10 - Essential (primary) hypertension <Annelise Johnson - Last Filed: 04/27/20 06:52> Date of Service: 04/22/20 Agree with plan of care as mentioned above. We will try to transfer to tertiary care facility per General surgery recommendation. Concern for abdominal pain. He needs CT scan for further evaluation per surgery. Transfer initiated. <Annelise Johnson - Last Filed: 04/27/20 06:52>
--- NOTE | 2020-04-21 19:17 | RAD REPORT ---
EXAM DESCRIPTION: US - Extrem Venous W Compress Oumar - 04/21/2020 6:24 pm CLINICAL HISTORY: Pain;Swelling COMPARISON: None. TECHNIQUE: Real-time sonographic evaluation of the bilateral lower extremity common femoral, superfi cial femoral, popliteal and posterior tibial veins was performed. FINDINGS: Normal compressibility, flow augmentation, phasic flow and spontaneous flow are identified in the left and right lower extremity superficial femoral, popliteal and posterior tibial veins. The bilateral common femoral arteries were very poorly visualized or nonvisualized. Large body habitus a nd inability to be fully supine for the examination limited evaluation. No intraluminal filling defec ts seen. IMPRESSION: Bilateral DVT study is limited as detailed. No acute deep venous thrombosis identifiable .
--- NOTE | 2020-04-21 19:19 | RAD REPORT ---
EXAM DESCRIPTION: US - Abdomen Exam Limited - 04/21/2020 6:24 pm CLINICAL HISTORY: ABD PAIN COMPARISON: No comparisons FINDINGS: A single 11 millimeter mobile gallstones seen. No other stones or sludge seen. . There is no wall thickening or pericholecystic fluid. No common duct stone or biliary tree dilatation identified. Increased echogenicity of the hepatic parenchyma seen. Liver is not fully assessed but this is consis tent with fatty infiltration. IMPRESSION: Single mobile 11 millimeter gallstone. No other gallbladder or biliary tree abnormality. Fatty infiltration of a partially imaged liver.
--- NOTE | 2020-04-21 19:24 | RAD REPORT ---
EXAM DESCRIPTION: RAD - Chest Single View - 04/21/2020 6:19 pm CLINICAL HISTORY: SOB, hypertension COMPARISON: Single-view chest October 2018 TECHNIQUE: AP portable chest image was obtained 04/21/2020 6:19 pm . FINDINGS: Exam is limited by large body habitus and portable technique. Lung volumes are low compare d to the prior study. No peripheral mass or consolidations seen. Mild alveolar viral type infiltrates could be masked. Significant failure or volume overload are doubtful. Heart and vasculature are norm al. No measurable pleural effusion and no pneumothorax. No acute bony abnormality seen. No acute aort ic findings suspected. IMPRESSION: Chest exam has significant limitation but no acute cardiopulmonary process identifiable.
[2020-04-21 20:00] LABS: Urine Blood 2+ (NEG); Urine Glucose TRACE (NEG); Urine Protein 3+ (NEG); Urine Specific Gravity 1.025 (1.005-1.030)
[2020-04-21 20:00] LABS: Anisocytosis 1+; Blood Morphology Comment NOTED (NOT SEEN); Platelet Estimate ADEQ; Poikilocytosis 1+; White Blood Cell Scan OK (OK)
[2020-04-21] MEDS: INSULIN -REGULAR HUMAN 50 UNIT/0.5 ML ML SQ SCH (21:50)
[2020-04-21] MEDS ORDERED: ONDANSETRON 4 MG/2 ML VIAL IV PRN (21:50)
[2020-04-21 22:22] VITALS: BMI 75.2
[2020-04-21] MEDS: NA CHLORIDE 0.9% 1,000 ML IV SCH (22:32)
[2020-04-21] MEDS ORDERED: MAGNESIUM SULFATE 1 gm IVPB 1 GM/100 ML BAG IV ONE (23:41)
[2020-04-22] MEDS: ACETAMINOPHEN 500 MG TAB PO PRN ×2 (00:15→13:29)
[2020-04-22] MEDS ORDERED: PIPER/TAZO/NS 3.375gm 3.375 GM/100 ML BAG ONE (00:31)
[2020-04-22] MEDS: PIPER/TAZO/NS 3.375gm 3.375 GM/100 ML BAG IVPB SCH ×4 (01:14→23:59)
[2020-04-22] MEDS ORDERED: NA CHLORIDE 0.9% 500 ML IV ONE (02:02)
--- NOTE | 2020-04-22 02:05 | P.INFCA ---
Sepsis Focused Assessment - Focused Assessment Complete? Sepsis Focused Assessment Completed?: Yes - Sepsis Screen Result Severe Sepsis: Negative Septic Shock: Negative - Evaluation Current stage of sepsis: Ruled out Reason for ruling out sepsis: Sepsis without severe sepsis or septic shock, BP WNL. - Vital Signs Reviewed: Yes Temperature: 99.1 F Heart rate: 107 Blood Pressure: 132/59 Respiratory Rate: 20 O2 Sat by Pulse Oximetry: 92 - Examination Date exam was performed: 04/21/20 Time exam was performed: 23:00 Heart: Tachycardia Lungs: Diminished air movement Peripheral pulses: 3+ Normal Peripheral pulse location: Radial Capillary refill: <2 Seconds Skin examination: Normal turgor
[2020-04-22 04:53] LABS: Absolute Lymphocytes (CBC) 0.8 K/uL (0.7-4.9); Basophils % 0.2 % (0-1.3); Hematocrit 37.2 % (39.6-49.0); Lymphocytes % 2.2 % (15.3-44.8); MPV 7.5 fL (7.6-11.3); RBC Red Blood Cell Count 4.58 M/uL (4.33-5.43)
[2020-04-22 04:56] LABS: Protime INR 1.19
[2020-04-22 05:28] LABS: Albumin 2.7 g/dL (3.4-5.0); Bilirubin Total 0.8 mg/dL (0.2-1.0); Magnesium 1.6 mg/dL (1.8-2.4); Potassium 4.2 mmol/L (3.5-5.1); Protein, Total 7.6 g/dL (6.4-8.2); Thyroid Stimulating Hormone 1.84 uIU/mL (0.360-3.740)
[2020-04-22 05:56] LABS: Platelet Estimate ADEQ
[2020-04-22 05:57] LABS: Blood Morphology Comment NOT SEEN (NOT SEEN)
[2020-04-22] MEDS: INSULIN -REGULAR HUMAN 50 UNIT/0.5 ML ML SQ SCH ×4 (07:30→21:00)
[2020-04-22] MEDS ORDERED: MAGNESIUM SULFATE 1 gm IVPB 1 GM/100 ML BAG IV ONE (08:00)
[2020-04-22] MEDS ORDERED: PNEUMOCOCCAL VACCINE 0.5 ML IMVAC ONE (08:00)
[2020-04-22] MEDS ORDERED: INFLUENZA VACCINE (for 3y+) 0.5 ML DOSE IMVAC ONE (08:00)
[2020-04-22] MEDS: NA CHLORIDE 0.9% 1,000 ML IV SCH ×2 (08:51→17:50)
[2020-04-22] MEDS: MORPHINE 2 MG/ML SYR IV PRN ×2 (08:55→21:03)
[2020-04-22] MEDS: VANCOMYCIN 2 GM in NA CHLORIDE 0.9% 500 ML IVPB SCH ×2 (10:27→21:03)
--- NOTE | 2020-04-22 11:14 | CON ---
Date of Consultation: 04/22/2020 Reason For Consult: Initially was lower extremity cellulitis, but now also they include upper abdomi nal pain. History Of Present Illness: This is a case of a 39-year-old patient with multiple medical problems i ncluding diabetes, hypertension, as per the ER physician looking at things of noncompliance with tiffany tment, now comes with a lower extremities cellulitis, fever 103, also tachycardia. During the workup , patient also mentioned the patient has chronic epigastric and chest pain. The patient was admitted , surgical consult was initially called for the cellulitis and since the patient also have an epigast shannan pain, it was consulted for that. This patient is almost 600 pounds. He has not been able to los e any weight. He has this pain on and off the epigastric area for the last few months. He denies an y dysuria, hematuria, hematochezia, melena. Denies any recent traveling out of the country. Denies any family member sick at home. Past Medical History: Morbid obesity with 586 pounds. BMI of 75. Diabetes, hypertension. As per t ER physician after asking, the patient has appearance of noncompliance with diabetes control and l osing weight. Past medical history includes once again no recent event, diabetes, throat biopsy, hypertension, morb id obesity. Family History: Includes stroke. He does not smoke. He does drink alcohol. Medication: Include metformin, metoprolol. Review of Systems: The patient previously had a fever of 103. He comes with bilateral lower extremities cellulitis. Al so chronic epigastric abdominal pain. Physical Examination: General: Patient is awake, alert. Pupils are equal and reactive. Neck: Supple. Chest: Clear. Abdomen: Soft and depressible. There is mild epigastric tenderness. Due to the body habitus, the v isual exam is so limited. No guarding or rebound. Rectal: Deferred. Extremities: Bilateral lower extremity with erythema present. No fluctuance is present. Chronic ly mphedema, varicosities. No Homans signs. Peripheral pulses still present. Laboratory Data: Blood work shows WBC count of 36.1, hemoglobin of 12.1, platelets of 317. INR is 1 .19. Chemistry shows glucose 186. Potassium is 4, total bilirubin of 0.3 within normal limits. Lip ase within normal limits 109. Chest x-ray exam has significant limitation due to body habitus, altho ugh they do not see any acute cardiopulmonary process. Abdominal x-ray, I did not see any. CAT scan , I do not see any. Abdominal ultrasound shows gallstones with no pericholecystic fluid and no other gallbladder or biliary abnormalities. Assessment: A 39-year-old patient comes to us with hypertension, tachycardia, fever, bilateral lower extremity cellulitis, also history of epigastric pain, although at this time, the gallbladder shows gallstones, although no inflammation around the area. Due to body habitus physical examination is so difficult. His WBC count is elevated and we have no specific etiology. I believe a CAT scan of the abdomen and pelvis should be done. I believe the hospital may have some limitations not only in the imaging, but also on the surgical instruments since he is almost 600 pounds. We recommend this elaine ent to be transferred to a center where he can receive treatment. We can get the proper imaging look ing for etiology of leukocytosis. Not only that we need to check his abdomen for any pathology that may be the cause of that leukocytosis. I discussed the case with the primary doctor. We need to con tinue workup in this patient immediately since the patient is having all the clinical problems. RICCARDO/WARD Voice ID: [id number] Report ID: [id number]
[2020-04-22] MEDS ORDERED: ONDANSETRON 4 MG/2 ML VIAL IV ONE (11:30)
--- NOTE | 2020-04-22 11:41 | P.PN ---
Date of Service: 04/22/20 [id number]
[2020-04-22 11:53] LABS: Absolute Lymphocytes (CBC) 0.9 K/uL (0.7-4.9); Basophils % 0.2 % (0-1.3); Hematocrit 35.8 % (39.6-49.0); Lymphocytes % 3.1 % (15.3-44.8); MPV 7.5 fL (7.6-11.3); RBC Red Blood Cell Count 4.41 M/uL (4.33-5.43)
[2020-04-22 12:34] LABS: Blood Morphology Comment NOT SEEN (NOT SEEN); Platelet Estimate ADEQ
--- NOTE | 2020-04-22 12:44 | PN ---
Date: 04/22/2020 @ 1200 Subjective: Spoke to General Surgery after they had evaluated the patient this morning. They recommended transfer to higher level of care because they did not feel comfortable with treating the patient here because of the lack with surgical equipment and diagnostic studies to diagnose and adequately treat the patient. We went ahead and assessed the patient and he was having some epigastric tenderness on exam. He also has erythema of the right leg. We have initiated transfer to [facility]. They said their CT scanner has capacity of 550 pounds. They recommended calling [facility]. We contacted [facility] and their CT scan capacity is 450 pounds. The mri supervisor has reached out to chief deputy to try to facilitate transfer. [facility] has also been contacted and we will measure the patient's girth if he may be able to get transfer to [facility] for higher level of care. The patient is uninsured that made this a little more difficult. PICC line has been ordered as well. Continue with broad-spectrum antibiotic coverage. Chest x-ray does not show free air. Ultrasound did not show any acute pathology, except for gallstones, but no distended gallbladder. Objective: Vital Signs: The patient has been afebrile since being in the hospital. His heart rate has come down into the 90s. Blood pressure is stable at 120/60. His respirations are at 19. He is saturating 96%. General: He is awake, alert, oriented to person, place, and time. HEENT: Within normal limits. Cardiovascular: Regular rate and rhythm. No murmur. Lungs: Clear bilaterally. Abdomen: Soft. Tender in the epigastric region. There is no rebound. There is no guarding. Bowel sounds are hypoactive. Extremities: The patient with bilateral lower extremity edema as well as bilateral lower extremity erythema. Assessment: 1. Abdominal pain. 2. Right lower extremity cellulitis. 3. Leukocytosis. 4. Bandemia. 5. History of diabetes. 6. Lactic acidosis. 7. Hypoalbuminemia. 8. Morbid obesity with BMI greater than 70. Plan: 1. IV antibiotic therapy. 2. IV hydration. 3. Antiemetics. 4. PICC line placement. 5. Appreciate Surgery consultation. 6. Strict blood sugar control. 7. Attempt transfer to tertiary care facility back and do diagnostic studies as well as any surgery that may be needed. If imaging studies did not reveal an acute pathology that needs surgical intervention, we will also be willing to accept the patient back. We at least need to figure out exactly what is going on with the patient before we can feel safe treating him at our facility. SCAR Voice ID: [id number] Report ID: [id number] ESTHELA
[2020-04-22 20:33] LABS: Albumin 2.4 g/dL (3.4-5.0); Bilirubin Total 0.5 mg/dL (0.2-1.0); Magnesium 1.9 mg/dL (1.8-2.4); Phosphorus 2.8 mg/dL (2.5-4.9); Potassium 4.2 mmol/L (3.5-5.1); Protein, Total 7.4 g/dL (6.4-8.2)
[2020-04-22] MEDS: ONDANSETRON 4 MG/2 ML VIAL IV PRN (21:03)
[2020-04-23 03:09] LABS: Magnesium 2.1 mg/dL (1.8-2.4); Potassium 4.7 mmol/L (3.5-5.1)
[2020-04-23] MEDS: ONDANSETRON 4 MG/2 ML VIAL IV PRN ×2 (03:21→11:32)
[2020-04-23] MEDS: NA CHLORIDE 0.9% 1,000 ML IV SCH ×3 (03:34→23:50)
[2020-04-23] MEDS: INSULIN -REGULAR HUMAN 50 UNIT/0.5 ML ML SQ SCH ×4 (07:30→21:00)
[2020-04-23] MEDS: PIPER/TAZO/NS 3.375gm 3.375 GM/100 ML BAG IVPB SCH ×2 (08:04→16:37)
[2020-04-23] MEDS: MORPHINE 2 MG/ML SYR IV PRN ×2 (08:15→16:38)
[2020-04-23 11:22] LABS: Albumin 2.2 g/dL (3.4-5.0); Bilirubin Total 0.4 mg/dL (0.2-1.0); Potassium 4.2 mmol/L (3.5-5.1)
[2020-04-23] MEDS: VANCOMYCIN 2 GM in NA CHLORIDE 0.9% 500 ML IVPB SCH ×2 (11:32→21:06)
[2020-04-23 17:59] LABS: Absolute Lymphocytes (CBC) 1.1 K/uL (0.7-4.9); Basophils % 0.1 % (0-1.3); Hematocrit 33.9 % (39.6-49.0); Lymphocytes % 5.9 % (15.3-44.8); MPV 7.3 fL (7.6-11.3); RBC Red Blood Cell Count 4.13 M/uL (4.33-5.43)
[2020-04-23 18:02] LABS: Protime INR 1.23
[2020-04-24] MEDS: PIPER/TAZO/NS 3.375gm 3.375 GM/100 ML BAG IVPB SCH ×2 (00:29→08:33)
[2020-04-24] MEDS: MORPHINE 2 MG/ML SYR IV PRN (03:42)
[2020-04-24] MEDS: ONDANSETRON 4 MG/2 ML VIAL IV PRN (03:42)
[2020-04-24] MEDS: INSULIN -REGULAR HUMAN 50 UNIT/0.5 ML ML SQ SCH ×4 (07:30→21:00)
[2020-04-24] MEDS: VANCOMYCIN 2 GM in NA CHLORIDE 0.9% 500 ML IVPB SCH (08:33)
[2020-04-24] MEDS: NA CHLORIDE 0.9% 1,000 ML IV SCH ×2 (08:37→19:50)
--- NOTE | 2020-04-24 09:43 | P.PN ---
Subjective Date of Service: 04/23/20 Subjective: No new changes, No C/O voiced, Improving Patient does not feel as bad as he did yesterday. Erythema on the leg is still quite significant but abdominal pain is slightly improved. Review of Systems 10-point ROS is otherwise unremarkable Physical Examination - Vital Signs Temperature: 98.1 F Blood Pressure: 145/70 Pulse: 88 Respirations: 16 Pulse Ox (%): 97 - Physical Exam General: Alert, In no apparent distress, Oriented x3, Obese HEENT: Atraumatic, PERRLA, EOMI Neck: Supple, JVD not distended Respiratory: Clear to auscultation bilaterally, Normal air movement Cardiovascular: Regular rate/rhythm, Normal S1 S2, No murmurs Gastrointestinal: Normal bowel sounds, Soft and benign, Non-distended, No rebound, No guarding, Tenderness Musculoskeletal: No clubbing, Swelling, Erythema, Tenderness, Warmth Integumentary: Tenderness/swelling, Erythema, Warmth Neurological: Sensation intact, Cranial nerves 3-12 intact Lymphatics: No axilla or inguinal lymphadenopathy - Studies Microbiology Data (last 24 hrs): 04/21/20 17:22 Blood - Blood Blood Culture Gram Stain - Final 04/21/20 17:22 Blood - Blood Gram Stain - Final 04/21/20 17:12 Blood - Blood Blood Culture Gram Stain - Final 04/21/20 17:12 Blood - Blood Gram Stain - Final Medications List Reviewed: Yes Assessment & Plan - Problems (Diagnosis) (1) Cellulitis of right lower extremity Current Visit: Yes Status: Acute (2) Abdominal pain Current Visit: Yes Status: Acute (3) Morbid obesity with BMI of 70 and over, adult Current Visit: Yes Status: Acute (4) Diabetes mellitus Current Visit: No Status: Chronic Qualifiers: Diabetes mellitus type: type 2 Diabetes mellitus prison insulin use: without intermediate frame tender use Diabetes mellitus complication status: without complicat ion Qualified Code(s): E11.9 - Type 2 diabetes mellitus without complications (5) Hypertension Current Visit: No Status: Chronic Qualifiers: Hypertension type: essential hypertension Qualified Code(s): I10 - Essential (primary) hypertension - Plan 1. Continue with IV antibiotic; broad spectrum to cover abdominal issues 2. Continue with local wound care 3. Infectious disease consultation 4. Gentle IV hydration 5. Monitor CBC 6. Strict blood sugar monitoring 7. Pain control 8. GI and DVT prophylaxis We have attempted transfer to get CT scan had numerous hospitals but we have been unsuccessful. Procalcitonin has decreased. Blood cultures are pending. Continue monitoring closely. Discharge Plan: Home Plan to discharge in: Greater than 2 days - Advance Directives Does patient have a Living Will: No Does patient have a Durable POA for Healthcare: No - Code Status/Comfort Care Code Status Assessed: Yes Code Status: Full Code Critical Care: No Time Spent Managing PTS Care (In Minutes): 35
--- NOTE | 2020-04-24 10:32 | PN ---
Date of Progress Note: 04/24/2020 Reason For Service: Epigastric pain and also bilateral lower extremity cellulitis. Subjective: The patient is doing better. Belly pain is almost gone. No nausea today. No vomiting today. Objective: Abdomen: Soft and depressible. Extremities: Still have a large area of cellulitis of the right lower extremity with a venous stasis ulcer present in the front. No abscess palpated. No fluctuance or crepitus. Plan: Continue the antibiotics. The patient has a pending transfer to [place] to workup the abdomin al pain. Continue with the same plan. RICCARDO/WARD Voice ID: [id number] Report ID: [id number]
[2020-04-24 11:20] LABS: Absolute Lymphocytes (CBC) 1.3 K/uL (0.7-4.9); Basophils % 0.4 % (0-1.3); Hematocrit 32.8 % (39.6-49.0); Lymphocytes % 8.7 % (15.3-44.8); MPV 7.3 fL (7.6-11.3); RBC Red Blood Cell Count 4.03 M/uL (4.33-5.43)
[2020-04-24 11:35] LABS: Albumin 2.2 g/dL (3.4-5.0); Bilirubin Total 0.5 mg/dL (0.2-1.0); Magnesium 2.1 mg/dL (1.8-2.4); Potassium 4.1 mmol/L (3.5-5.1); Protein, Total 7.4 g/dL (6.4-8.2)
--- NOTE | 2020-04-24 16:42 | RAD REPORT ---
EXAM DESCRIPTION: RAD - Chest Single View - 04/24/2020 4:16 pm CLINICAL HISTORY: Device placement PICC line placement IMPRESSION: PICC line is visualized throughout the right upper arm. However, the line is not visual ized within the right axillary, right subclavian or right brachiocephalic veins. Evaluation is limited secondary to body habitus
[2020-04-24] MEDS ORDERED: HYDROCORTISONE SUC 100 MG INJ IV ONE (16:57)
--- NOTE | 2020-04-24 17:33 | RAD REPORT ---
EXAM DESCRIPTION: RAD - Chest Single View - 04/24/2020 5:27 pm CLINICAL HISTORY: Device placement PICC line placement . IMPRESSION: PICC line with its tip in the proximal superior vena cava
[2020-04-25] MEDS: NA CHLORIDE 0.9% 1,000 ML IV SCH ×2 (04:53→18:35)
[2020-04-25] MEDS ORDERED: INFLUENZA VACCINE (for 3y+) 0.5 ML DOSE IMVAC ONE (06:00)
[2020-04-25] MEDS ORDERED: PNEUMOCOCCAL VACCINE 0.5 ML IMVAC ONE (06:00)
[2020-04-25] MEDS: INSULIN -REGULAR HUMAN 50 UNIT/0.5 ML ML SQ SCH ×4 (07:30→20:53)
[2020-04-25] MEDS: Levofloxacin 750mg IV 750 MG/150 ML BAG IV SCH (08:39)
[2020-04-25] MEDS: MORPHINE 2 MG/ML SYR IV PRN ×2 (12:29→20:55)
[2020-04-26] MEDS: NA CHLORIDE 0.9% 1,000 ML IV SCH ×3 (01:50→20:28)
[2020-04-26] MEDS: HYDRALAZINE HCL 20 MG/ML VIAL IV PRN ×2 (02:08→12:18)
[2020-04-26 05:54] LABS: Absolute Lymphocytes (CBC) 1.4 K/uL (0.7-4.9); Basophils % 0.4 % (0-1.3); Hematocrit 30.4 % (39.6-49.0); Lymphocytes % 11.2 % (15.3-44.8); MPV 7.3 fL (7.6-11.3); RBC Red Blood Cell Count 3.72 M/uL (4.33-5.43)
[2020-04-26 06:03] LABS: ALT/SGPT 35 U/L (12-78); AST/SGOT 18 U/L (15-37); Albumin 2.3 g/dL (3.4-5.0); Alkaline Phosphatase 84 U/L (45-117); BUN Blood Urea Nitrogen 8 mg/dL (7-18); Bicarbonate 29 mmol/L (21-32); Bilirubin Total 0.5 mg/dL (0.2-1.0); Glucose Level 122 mg/dL (74-106); NT PRO-BNP 576 pg/mL (<125); Phosphorus 2.9 mg/dL (2.5-4.9); Potassium 3.8 mmol/L (3.5-5.1); Protein, Total 7.2 g/dL (6.4-8.2); Sodium Level 141 mmol/L (136-145)
[2020-04-26] MEDS ORDERED: KCL 20 MEQ/100 mL IVPB 20 MEQ/100 ML BAG IV SCH (07:00)
[2020-04-26] MEDS: INSULIN -REGULAR HUMAN 50 UNIT/0.5 ML ML SQ SCH ×4 (07:30→20:23)
[2020-04-26] MEDS: Levofloxacin 750mg IV 750 MG/150 ML BAG IV SCH (08:03)
[2020-04-26] MEDS ORDERED: METOPROLOL TAR 25 MG TAB PO ONE (09:01)
--- NOTE | 2020-04-26 09:04 | P.PN ---
Subjective Date of Service: 04/24/20 PATIENT IS FEELING MUCH BETTER. SYMPTOMS ARE GRADUALLY IMPROVING. ABDOMINAL PAIN IS IMPROVED WELL. HOWEVER, THE RIGHT LOWER EXTREMITY IS STILL SIGNIFICANTLY ERYTHEMATOUS AND EDEMATOUS. Review of Systems 10-point ROS is otherwise unremarkable Physical Examination - Vital Signs Temperature: 97.1 F Blood Pressure: 180/90 Pulse: 74 Respirations: 16 Pulse Ox (%): 96 - Physical Exam General: Alert, In no apparent distress, Oriented x3 HEENT: Atraumatic, PERRLA, EOMI Neck: Supple, JVD not distended Respiratory: Clear to auscultation bilaterally, Normal air movement Cardiovascular: Regular rate/rhythm, Normal S1 S2 Gastrointestinal: Normal bowel sounds, Soft and benign, Non-distended, No tenderness Musculoskeletal: Erythema, Tenderness, Warmth Integumentary: Tenderness/swelling, Erythema, Warmth Lymphatics: No axilla or inguinal lymphadenopathy - Studies Medications List Reviewed: Yes Assessment & Plan - Problems (Diagnosis) (1) Cellulitis of right lower extremity Current Visit: Yes Status: Acute (2) Abdominal pain Current Visit: Yes Status: Acute (3) Morbid obesity with BMI of 70 and over, adult Current Visit: Yes Status: Acute (4) Diabetes mellitus Current Visit: No Status: Chronic Qualifiers: Diabetes mellitus type: type 2 Diabetes mellitus longterm insulin use: without longterm use Diabetes mellitus complication status: without complication Qualified Code(s): E11.9 - Type 2 diabetes mellitus without complications (5) Hypertension Current Visit: No Status: Chronic Qualifiers: Hypertension type: essential hypertension Qualified Code(s): I10 - Essential (primary) hypertension - Plan 1. Continue with IV antibiotic; abdominal symptoms are gradually improving 2. Continue with local wound care 3. Appreciate surgery recommendations 4. Gentle IV hydration 5. Monitor CBC 6. Strict blood sugar monitoring 7. Pain control 8. GI and DVT prophylaxis Unable to transfer to tertiary care facility for CT scanning. However, symptoms are improving at this time. Discharge Plan: Home Plan to discharge in: Greater than 2 days - Advance Directives Does patient have a Living Will: No Does patient have a Durable POA for Healthcare: No - Code Status/Comfort Care Code Status: Full Code Critical Care: No Time Spent Managing PTS Care (In Minutes): 35
--- NOTE | 2020-04-26 09:09 | P.PN ---
Subjective Date of Service: 04/25/20 Patient is much improved except for the lower extremity. Abdominal symptoms are pretty much resolved. Will go ahead and start ice chips. Labs are stable. Review of Systems 10-point ROS is otherwise unremarkable Physical Examination - Vital Signs Temperature: 97.1 F Blood Pressure: 180/90 Pulse: 74 Respirations: 16 Pulse Ox (%): 96 - Physical Exam General: Alert, In no apparent distress, Oriented x3 Neck: Supple, 2+ carotid pulse no bruit, JVD not distended Respiratory: Clear to auscultation bilaterally, Normal air movement Cardiovascular: Regular rate/rhythm, Normal S1 S2 Gastrointestinal: Normal bowel sounds, Soft and benign, Non-distended Musculoskeletal: No clubbing, No swelling - Studies Medications List Reviewed: Yes Assessment & Plan - Problems (Diagnosis) (1) Cellulitis of right lower extremity Current Visit: Yes Status: Acute (2) Abdominal pain Current Visit: Yes Status: Acute (3) Morbid obesity with BMI of 70 and over, adult Current Visit: Yes Status: Acute (4) Diabetes mellitus Current Visit: No Status: Chronic Qualifiers: Diabetes mellitus type: type 2 Diabetes mellitus mcc insulin use: without mcc use Diabetes mellitus complication status: without complication Qualified Code(s): E11.9 - Type 2 diabetes mellitus without complications (5) Hypertension Current Visit: No Status: Chronic Qualifiers: Hypertension type: essential hypertension Qualified Code(s): I10 - Essential (primary) hypertension - Plan 1. Continue with IV antibiotic; abdominal symptoms have improved; right lower e xtremity is still edematous and erythematous. Slowly improving. Procalcitonin level still elevated. 2. Continue with local wound care 3. Appreciate surgery recommendations 4. Gentle IV hydration 5. Monitor CBC 6. Strict blood sugar monitoring 7. Pain control 8. GI and DVT prophylaxis Unable to transfer to tertiary care facility for CT scanning. However, symptoms are improving at this time. - Advance Directives Does patient have a Living Will: No Does patient have a Durable POA for Healthcare: No - Code Status/Comfort Care Code Status: Full Code
[2020-04-26 09:52] LABS: Platelet Estimate ADEQ
[2020-04-26 09:53] LABS: Blood Morphology Comment NOT SEEN (NOT SEEN)
[2020-04-26] MEDS: MORPHINE 2 MG/ML SYR IV PRN (10:39)
[2020-04-26] MEDS ORDERED: METOPROLOL TAR 25 MG TAB PO SCH (18:00)
--- NOTE | 2020-04-26 19:01 | PN ---
Diagnosis: Cellulitis of the right lower extremity and also epigastric pain. Subjective: The patient is doing better. No shortness of breath. No chest pain. The abdominal karoline n is resolved. Objective: Chest: Clear. Abdomen: Soft and depressible. Extremities: Still redness of the almost entire calf region. No fluctuance seen or crepitus found. Laboratory Data: Blood work come from 36 down to 12.2. Assessment: This is a 39-year-old patient with cellulitis of the right lower extremity. Even though the white count is better, still has some significant redness in the right lower extremity. We dorothy mmend the patient to be seen by Infectious Disease to help us calculate the length of treatment for t hat cellulitis. RICCARDO/WARD Voice ID: [id number] Report ID: [id number]
[2020-04-26] MEDS: LOSARTAN POTASSIUM 50 MG TABLET PO SCH (20:27)
[2020-04-27] MEDS: HYDRALAZINE HCL 20 MG/ML VIAL IV PRN ×3 (00:40→13:18)
[2020-04-27] MEDS: METOPROLOL TAR 50 MG TAB PO SCH ×3 (02:33→18:00)
[2020-04-27] MEDS ORDERED: METOPROLOL TAR 50 MG TAB PO SCH (06:00)
[2020-04-27] MEDS ORDERED: HYDROCORTISONE SUC 100 MG INJ IV ONE (06:48)
[2020-04-27] MEDS ORDERED: FUROSEMIDE 40 MG/4 ML VIAL IV ONE (06:48)
--- NOTE | 2020-04-27 06:51 | P.PN ---
Subjective Date of Service: 04/26/20 PATIENT'S LOWER EXTREMITY STILL EDEMATOUS. HEP-LOCK IV. CULTURES ARE SENSITIVE TO LEVAQUIN. A GO AHEAD AND ADD VANCOMYCIN FOR 48 HOURS. GET INFECTIOUS DISEASE CONSULTATION. CONTROL BLOOD PRESSURE WITH LOPRESSOR AND COZAAR. ADD A DOSE OF LASIX WELL. Review of Systems 10-point ROS is otherwise unremarkable Physical Examination - Vital Signs Temperature: 98.1 F Blood Pressure: 199/91 Pulse: 79 Respirations: 18 Pulse Ox (%): 94 - Physical Exam General: Alert, In no apparent distress, Oriented x3, Obese Neck: Supple Respiratory: Clear to auscultation bilaterally, Normal air movement Cardiovascular: Regular rate/rhythm, Normal S1 S2, No murmurs Gastrointestinal: Normal bowel sounds, Soft and benign, Non-distended, No tenderness Musculoskeletal: Swelling, Erythema, Tenderness Integumentary: Tenderness/swelling, Erythema, Warmth Neurological: Normal strength at 5/5 x4 extr, Normal tone, Sensation intact, Cranial nerves 3-12 intact, Normal affect Lymphatics: No axilla or inguinal lymphadenopathy - Studies Medications List Reviewed: Yes Assessment & Plan - Problems (Diagnosis) (1) Cellulitis of right lower extremity Current Visit: Yes Status: Acute (2) Abdominal pain Current Visit: Yes Status: Acute (3) Morbid obesity with BMI of 70 and over, adult Current Visit: Yes Status: Acute (4) Diabetes mellitus Current Visit: No Status: Chronic Qualifiers: Diabetes mellitus type: type 2 Diabetes mellitus manager long term care insulin use: without manager long term care use Diabetes mellitus complication status: without complication Qualified Code(s): E11.9 - Type 2 diabetes mellitus without complications (5) Hypertension Current Visit: No Status: Chronic Qualifiers: Hypertension type: essential hypertension Qualified Code(s): I10 - Essential (primary) hypertension - Plan CONTINUE WITH PLAN OF CARE MENTIONED BELOW: 1. Continue with IV antibiotic; cover MSSA and strep; right lower extremity is still edematous and erythematous. Slowly improving. Procalcitonin level still elevated but decreasing 2. Continue with local wound care 3. Appreciate surgery recommendations 4. Heplock IV 5. Monitor CBC 6. Strict blood sugar monitoring 7. Pain control 8. GI and DVT prophylaxis Unable to transfer to tertiary care facility for CT scanning. However, symptoms are improving at this time. Abdominal symptoms have improved; Discharge Plan: Home Plan to discharge in: Greater than 2 days - Advance Directives Does patient have a Living Will: No Does patient have a Durable POA for Healthcare: No - Code Status/Comfort Care Code Status: Full Code Critical Care: No Time Spent Managing PTS Care (In Minutes): 35
[2020-04-27] MEDS: INSULIN -REGULAR HUMAN 50 UNIT/0.5 ML ML SQ SCH ×4 (07:30→20:48)
[2020-04-27] MEDS: ACETAMINOPHEN 500 MG TAB PO PRN (08:28)
[2020-04-27] MEDS: Levofloxacin 750mg IV 750 MG/150 ML BAG IV SCH (08:28)
[2020-04-27] MEDS: LOSARTAN POTASSIUM 50 MG TABLET PO SCH ×2 (08:28→20:48)
[2020-04-27] MEDS: MORPHINE 2 MG/ML SYR IV PRN (08:37)
[2020-04-27] MEDS ORDERED: VANCOMYCIN 2 GM in NA CHLORIDE 0.9% 500 ML IVPB SCH (09:00)
[2020-04-27] MEDS ORDERED: LOSARTAN POTASSIUM 50 MG TABLET PO ONE (09:02)
--- NOTE | 2020-04-27 10:57 | P.PN ---
Subjective Date of Service: 04/27/20 Primary Care Provider: None Chief Complaint: Sepsis Subjective: No new changes, No C/O voiced Review of Systems 10-point ROS is otherwise unremarkable Physical Examination - Vital Signs Temperature: 99.9 F Blood Pressure: 185/82 Pulse: 85 Respirations: 19 Pulse Ox (%): 94 - Physical Exam General: Alert, In no apparent distress, Oriented x3, Obese HEENT: Atraumatic, Normocephalic Neck: Supple Respiratory: Clear to auscultation bilaterally, Normal air movement Cardiovascular: Regular rate/rhythm, Normal S1 S2, Edema Capillary refill: <2 Seconds Gastrointestinal: Soft and benign, W/out hepatosplenomegaly Musculoskeletal: No clubbing Integumentary: Tenderness/swelling, Erythema, Warmth Neurological: Normal speech, Normal strength at 5/5 x4 extr Lymphatics: No axilla or inguinal lymphadenopathy - Studies Medications List Reviewed: Yes Assessment & Plan - Problems (Diagnosis) (1) Cellulitis of right lower extremity Current Visit: Yes Status: Acute (2) Morbid obesity with BMI of 70 and over, adult Current Visit: Yes Status: Acute (3) Diabetes mellitus Current Visit: No Status: Chronic Qualifiers: Diabetes mellitus type: type 2 Diabetes mellitus fci insulin use: without terminal operations manager use Diabetes mellitus complication status: without complication Qualified Code(s): E11.9 - Type 2 diabetes mellitus without complications (4) Hypertension Current Visit: No Status: Chronic Qualifiers: Hypertension type: essential hypertension Qualified Code(s): I10 - Essential (primary) hypertension Physician Review Additional Text: Monitor closely still having tenderness of lower extremity Pain control Continue IV antibiotics Still having swelling on bilateral lower extremity especially on the right Slowly improving Continue local wound care Appreciate help from surgery Strict blood sugar control Continue home medications and titrate as needed GI/DVT prophylaxis Advised about lifestyle modification Time Spent Managing Pts Care (In Minutes): 45
[2020-04-27] MEDS ORDERED: VANCOMYCIN 3 GM in NA CHLORIDE 0.9% 500 ML IVPB ONE (11:00)
[2020-04-27] MEDS: VANCOMYCIN 2 GM in NA CHLORIDE 0.9% 500 ML IVPB SCH (22:14)
[2020-04-28] MEDS: HYDRALAZINE HCL 20 MG/ML VIAL IV PRN (00:30)
[2020-04-28] MEDS ORDERED: ALTEPLASE 2 MG/VIAL IV SCH ×3 (05:00→09:00)
[2020-04-28] MEDS: METOPROLOL TAR 50 MG TAB PO SCH ×2 (05:17→18:12)
[2020-04-28 06:48] LABS: BUN Blood Urea Nitrogen 7 mg/dL (7-18); Bicarbonate 29 mmol/L (21-32); Glucose Level 106 mg/dL (74-106); Magnesium 1.7 mg/dL (1.8-2.4); Potassium 3.3 mmol/L (3.5-5.1); Sodium Level 139 mmol/L (136-145)
[2020-04-28] MEDS: INSULIN -REGULAR HUMAN 50 UNIT/0.5 ML ML SQ SCH ×4 (07:30→20:52)
[2020-04-28] MEDS: LOSARTAN POTASSIUM 50 MG TABLET PO SCH ×2 (08:37→20:52)
[2020-04-28] MEDS ORDERED: POTASSIUM 25 MEQ EFFERV TAB PO ONE (09:00)
[2020-04-28] MEDS: Levofloxacin 750mg IV 750 MG/150 ML BAG IV SCH (09:00)
[2020-04-28] MEDS ORDERED: WATER FOR INJ,STERILE 10 ML IV SCH ×2 (09:00)
[2020-04-28] MEDS ORDERED: MAGNESIUM SULFATE 1 gm IVPB 1 GM/100 ML BAG IV ONE (09:00)
[2020-04-28] MEDS ORDERED: POTASSIUM CL SA 10 MEQ TAB PO ONE (09:00)
--- NOTE | 2020-04-28 09:40 | P.PN ---
Subjective Date of Service: 04/28/20 Primary Care Provider: None Chief Complaint: Sepsis Subjective: No new changes, No C/O voiced Review of Systems 10-point ROS is otherwise unremarkable Physical Examination - Vital Signs Temperature: 97.5 F Blood Pressure: 149/67 Pulse: 82 Respirations: 19 Pulse Ox (%): 94 - Physical Exam General: Alert, In no apparent distress HEENT: Atraumatic, Normocephalic Neck: Supple Respiratory: Clear to auscultation bilaterally, Normal air movement Cardiovascular: Regular rate/rhythm, Normal S1 S2 Capillary refill: <2 Seconds Gastrointestinal: Soft and benign, W/out hepatosplenomegaly Musculoskeletal: No clubbing, No swelling Integumentary: Rash(es), Tenderness/swelling, Erythema, Warmth Neurological: Normal speech, Normal strength at 5/5 x4 extr Lymphatics: Other (No generalized lymphadenopathy) - Studies Medications List Reviewed: Yes Assessment & Plan - Problems (Diagnosis) (1) Cellulitis of right lower extremity Current Visit: Yes Status: Acute (2) Morbid obesity with BMI of 70 and over, adult Current Visit: Yes Status: Acute (3) Diabetes mellitus Current Visit: No Status: Chronic Qualifiers: Diabetes mellitus type: type 2 Diabetes mellitus skeins yarn examiner insulin use: without skeins yarn examiner use Diabetes mellitus complication status: without complication Qualified Code(s): E11.9 - Type 2 diabetes mellitus without complications (4) Hypertension Current Visit: No Status: Chronic Qualifiers: Hypertension type: essential hypertension Qualified Code(s): I10 - Essential (primary) hypertension Physician Review Additional Text: Pain medications titrated Monitor closely still having tenderness of lower extremity Pain controlled well Continue IV antibiotics Blood culture was positive for Streptococcus dysgalactiae wound culture was positive for Staph aureus Appreciate help from ID Still having swelling on bilateral lower extremity especially on the right Slowly improving Continue local wound care Appreciate help from surgery and ID Strict blood sugar control Insulin sliding scale and basal insulin Continue home medications and titrate as needed GI/DVT prophylaxis Advised about lifestyle modification Time Spent Managing Pts Care (In Minutes): 42
[2020-04-28] MEDS: VANCOMYCIN 2 GM in NA CHLORIDE 0.9% 500 ML IVPB SCH ×3 (12:09→23:58)
[2020-04-28] MEDS: MORPHINE 2 MG/ML SYR IV PRN (13:08)
[2020-04-28] MEDS: FUROSEMIDE 20 MG TABLET PO SCH (16:04)
[2020-04-28 20:30] LABS: Hematocrit 34.3 % (39.6-49.0)
--- NOTE | 2020-04-28 20:30 | P.PN ---
Date of Service: 04/28/20 pt c/o of melena stool, h/h previously trending down , s/p given TPA for picc line occlusion earlier this am , not on any anticoagulation - will monitor serial h/h , GI eval in am -vitals stable now
[2020-04-29] MEDS: METOPROLOL TAR 50 MG TAB PO SCH ×2 (04:54→17:56)
[2020-04-29 05:52] LABS: Absolute Lymphocytes (CBC) 1.7 K/uL (0.7-4.9); Basophils % 0.5 % (0-1.3); Hematocrit 32.7 % (39.6-49.0); Lymphocytes % 13.1 % (15.3-44.8); MPV 6.9 fL (7.6-11.3); RBC Red Blood Cell Count 4.02 M/uL (4.33-5.43)
[2020-04-29 05:59] LABS: BUN Blood Urea Nitrogen 8 mg/dL (7-18); Bicarbonate 33 mmol/L (21-32); Glucose Level 108 mg/dL (74-106); Potassium 3.5 mmol/L (3.5-5.1); Sodium Level 144 mmol/L (136-145)
[2020-04-29] MEDS: INSULIN -REGULAR HUMAN 50 UNIT/0.5 ML ML SQ SCH ×4 (07:30→20:34)
[2020-04-29 08:19] LABS: Blood Morphology Comment NOT SEEN (NOT SEEN); Platelet Estimate ADEQ
--- NOTE | 2020-04-29 08:39 | RAD REPORT ---
EXAM DESCRIPTION: RAD - Chest Single View - 04/29/2020 8:31 am CLINICAL HISTORY: Device placement PICC line placement . IMPRESSION: A PICC line is seen within the region of the upper aspect of the right arm likely the br achial vein. It is not clearly seen within the right upper chest although evaluation is limited secon isaiah to body habitus
[2020-04-29] MEDS: FUROSEMIDE 20 MG TABLET PO SCH ×2 (08:57→17:56)
[2020-04-29] MEDS: LOSARTAN POTASSIUM 50 MG TABLET PO SCH ×2 (08:57→20:33)
[2020-04-29] MEDS: Levofloxacin 750mg IV 750 MG/150 ML BAG IV SCH (09:00)
[2020-04-29] MEDS: VANCOMYCIN 2 GM in NA CHLORIDE 0.9% 500 ML IVPB SCH (11:00)
[2020-04-29 15:57] VITALS: O2SAT 95
--- NOTE | 2020-04-29 16:38 | P.PN ---
Subjective Date of Service: 04/29/20 Primary Care Provider: None Chief Complaint: Sepsis Subjective: Improving (had some rectal bleeding with stool times one) Physical Examination - Vital Signs Temperature: 97.7 F Blood Pressure: 136/65 Pulse: 81 Respirations: 20 Pulse Ox (%): 93 - Physical Exam General: Alert, In no apparent distress, Oriented x3, Cooperative HEENT: Atraumatic Neck: Supple Respiratory: Clear to auscultation bilaterally, Normal air movement Cardiovascular: Normal pulses, Regular rate/rhythm Gastrointestinal: Normal bowel sounds Integumentary: Other (Chronic lymphedema to the lower extremities. Erythema to the right lower extremity improved.) Neurological: Normal speech, Normal strength at 5/5 x4 extr, Normal tone, Normal affect - Studies Medications List Reviewed: Yes Assessment & Plan Discharge Plan: Home Plan to discharge in: 48 Hours Physician Review Additional Text: Impression: Right lower extremity cellulitis and bacteremia with chronic lymphedema, wound culture positive for Staph, blood culture positive for strep Diabetes mellitus type 2 with hyperglycemia Hypertension Morbid obesity, BMI 75 Rectal bleeding Anemia, suspect iron deficiency Plan: Right lower extremity cellulitis and bacteremia with chronic lymphedema, wound culture positive for Staph, blood culture positive for strep: Cultures reviewed. Will change IV antibiotic therapy to oral Levaquin. Levaquin should cover for both. Will need to treat for total of 14 days. Improvement noted. Will provide DVT prophylaxis. Anticipate possible discharge in the next 48 hr. Diabetes mellitus type 2 with hyperglycemia: A1c 7.0. Continue with Accu-Cheks at discharge. Hypertension: Continue with losartan and metoprolol. Morbid obesity continue with lifestyle modification education. Patient should see bariatric surgery as an outpatient to further evaluate and treat. Rectal bleeding: This was 1 episode. Will monitor this closely. Hemoglobin stable. Anemia Suspect iron deficiency: Will check iron and B12 studies. Monitor closely. Time Spent Managing Pts Care (In Minutes): 55
[2020-04-29] MEDS ORDERED: TRAMADOL HCL 50 MG TAB PO PRN (16:41)
[2020-04-29] MEDS ORDERED: HYDROCODONE/APAP 7.5/325 MG TAB PO PRN (16:41)
--- NOTE | 2020-04-29 17:41 | RAD REPORT ---
EXAM DESCRIPTION: RAD - Chest Single View - 04/29/2020 5:36 pm CLINICAL HISTORY: new picc placed 04/29/20 1630 Chest pain. COMPARISON: Chest Single View dated 04/29/2020; Chest Single View dated 04/24/2020; Chest Single Vie w dated 04/24/2020; Chest Single View dated 04/21/2020 FINDINGS: Portable technique limits examination quality. No PICC line is visualized on the radiograph submitted. PICC line may be coiled in the arm.
--- NOTE | 2020-04-29 18:52 | RAD REPORT ---
EXAM DESCRIPTION: US - UPPER EXTREMITY VENOUS UNILATE - 04/29/2020 6:34 pm CLINICAL HISTORY: edema to Right extremity Right arm swelling. COMPARISON: Extrem Venous W Compress Oumar dated 04/21/2020 FINDINGS: Right upper extremity venous system was interrogated with Doppler technique. There is thro mbus seen in the right cephalic vein and subclavian vein. IMPRESSION: Positive for thrombus in the right subclavian vein and cephalic vein.
[2020-04-29] MEDS: levoFLOXacin 750 MG TAB PO SCH (20:33)
[2020-04-29] MEDS: HEPARIN 5000 UNIT/ML 1 ML VIAL SQ SCH ×2 (20:35→23:09)
[2020-04-30 03:59] LABS: Absolute Lymphocytes (CBC) 1.9 K/uL (0.7-4.9); Basophils % 1.3 % (0-1.3); Hematocrit 34.3 % (39.6-49.0); MPV 7.2 fL (7.6-11.3); RBC Red Blood Cell Count 4.23 M/uL (4.33-5.43)
[2020-04-30 04:31] LABS: Magnesium 1.8 mg/dL (1.8-2.4); Potassium 3.5 mmol/L (3.5-5.1)
[2020-04-30] MEDS: METOPROLOL TAR 50 MG TAB PO SCH (05:14)
[2020-04-30] MEDS: INSULIN -REGULAR HUMAN 50 UNIT/0.5 ML ML SQ SCH ×2 (07:30→11:30)
[2020-04-30] MEDS: FUROSEMIDE 20 MG TABLET PO SCH (08:55)
[2020-04-30] MEDS: LOSARTAN POTASSIUM 50 MG TABLET PO SCH (08:55)
[2020-04-30] MEDS: HEPARIN 5000 UNIT/ML 1 ML VIAL SQ SCH (08:55)
[2020-04-30] MEDS ORDERED: POTASSIUM 25 MEQ EFFERV TAB PO ONE (09:00)
[2020-04-30] MEDS: levoFLOXacin 750 MG TAB PO SCH (09:02)
[2020-04-30] MEDS ORDERED: HYDRALAZINE HCL 25 MG TABLET PO SCH (09:24)
--- NOTE | 2020-04-30 09:40 | P.DS ---
Admission Date: 04/21/20 Discharge Date: 04/30/20 Primary Care Provider: None Disposition: ROUTINE DISCHARGE Discharge Condition: GOOD Reason for Admission: Sepsis Consultations: Surgery-Dr. Sainz Infectious disease-Dr. Beard Procedures: Venous doppler: COMPARISON: Extrem Venous W Compress Oumar dated 04/21/2020 FINDINGS: Right upper extremity venous system was interrogated with Doppler technique. There is thrombus seen in the right cephalic vein and subclavian vein. IMPRESSION: Positive for thrombus in the right subclavian vein and cephalic vei n. Abdominal US: FINDINGS: A single 11 millimeter mobile gallstones seen. No other stones or sludge seen. . There is no wall thickening or pericholecystic fluid. No common duct stone or biliary tree dilatation identified. Increased echogenicity of the hepatic parenchyma seen. Liver is not fully assessed but this is consistent with fatty infiltration. IMPRESSION: Single mobile 11 millimeter gallstone. No other gallbladder or biliary tree abnormality. Fatty infiltration of a partially imaged liver. Impression: Right lower extremity cellulitis and bacteremia with chronic lymphedema, wound culture positive for Staph, blood culture positive for strep Diabetes mellitus type 2 with hyperglycemia Hypertension Morbid obesity, BMI 75 Rectal bleeding resolved Cholelithiasis without cholecystitis Anemia, suspect iron deficiency Thrombus in the right subclavian vein and cephalic vein Fatty liver Suspect obstructive sleep apnea Brief History of Present Illness: 31-year-old male with history of diabetes, hypertension, morbid obesity, medical noncompliant presents to the emergency department for shortness of breath and epigastric pain. Patient noted to be tachycardic, febrile at presentation to the emergency department. Initial vital signs blood pressure 161/84, heart rate 127, temperature 103.3, 91% on room air. Patient is 263 kilos. Patient was evaluated in the emergency department with full sepsis workup, venous ultrasound right bilateral, ultrasound right upper quadrant. Patient body habitus not suitable for CT scan. Labs reveal white blood cell count 19.5 with left shift, hemoglobin 12.7 hematocrit 39.9 initial lactate 2.8. Liver enzymes within normal limits, lipase normal. Magnesium 1.6 pro calcitonin 0.36. Ultrasound bilateral lower extremities negative for DVT but unable to visualize CFV due to body habitus. Ultrasound right upper quadrant reveals gallbladder stone near the neck of the gallbladder but without pericholecystic fluid, wall thickening, CBD dilatation. Right lower extremity does appear to be cellulitic although this is difficult to distinguish due to patient's body habitus and skin color. Patient does have tenderness to the right lower extremity versus the left lower extremity and does appear to be erythematous in comparison. Patient admitted for further treatment. Hospital Course: Patient presented with right lower extremity cellulitis and epigastric pain. Patient was found to have cholelithiasis without cholecystitis. The patient was treated for cellulitis. Wound culture was positive for Staphylococcus aureus. Patient also had positive blood cultures for Streptococcus dysgalactiae. Sensitivities were noted to Levaquin. Patient was transitioned to oral Levaquin with improvement. Edema, erythema to the right lower extremity has significantly improved. No surgical intervention was required. At discharge patient will continue with Levaquin 750 mg daily for 10 more days. Recommend to recheck blood culture after that time to monitor resolution. Will have patient establish care with a local PCP open also continue with current wound care. The patient may also follow up at the [facility] to further address. Patient with diabetes mellitus type 2. Hyperglycemia noted 7.0. Patient not take any medication at this time. Patient seems to be controlled with diet. At discharge patient continue with a 2000 ADA diet. Recommend to monitor blood sugars at least twice daily. If blood sugars remain above 200 then patient may require medication. This can be further monitored and addressed by his PCP. Patient with hypertension. This was uncontrolled. Patient required additional medication. At discharge patient will continue with losartan 50 mg 1 pill twice daily, metoprolol 50 mg 1 pill twice daily, and hydralazine 50 mg 1 pill twice daily. Recommend to maintain blood pressure less than 130/80. Further adjustment can be done by his PCP. Patient with chronic lymphedema. Patient did require diuretic therapy. At discharge patient will continue with a 1500 cc per day fluid restriction and low-salt diet. Patient will also continue with Lasix 20 mg 1 pill twice daily. Recommend to recheck lab-BMP in 1 week to monitors progress. Recommend to monitor his weight daily. Further adjustment in medication can be done by his PCP. Patient required PICC line. Difficulty was noted due to his body habitus. This was removed. Venous Doppler after this showed subclavian thrombus. This was likely provoked from the PICC line. At discharge patient will continue with Eliquis 5 mg 1 pill twice daily. He will continue with medication for at least 3 months. Education on subclavian thrombus and Eliquis will be provided. Patient had some mild rectal bleeding. This was 1 episode. No further bleeding noted. This will need to be monitored closely as the patient will be on Eliquis. If rectal bleeding continues he is to contact his PCP for further recommendation. He is to stop his Eliquis if with noted bleeding. Patient with iron deficiency anemia. This appears stable this time. Patient may continue with a multivitamin with iron over the counter. Recommend to recheck CBC in 2-4 weeks to monitors progress. Patient with morbid obesity. Patient likely with underlying obstructive sleep apnea. Recommend follow up with pulmonology for sleep study to further evaluate. Patient will also benefit with bariatric surgery evaluation to further address and treat. Vital Signs/Physical Exam: Temp Pulse Resp BP Pulse Ox 98.0 F 70 18 188/80 H 95 04/30/20 08:00 04/30/20 08:00 04/30/20 08:00 04/30/20 08:00 04/30/20 08:00 General: Alert, In no apparent distress, Oriented x3, Cooperative HEENT: Atraumatic Neck: Supple Respiratory: Clear to auscultation bilaterally, Normal air movement Cardiovascular: Normal pulses, Regular rate/rhythm Gastrointestinal: Normal bowel sounds, Soft and benign, Non-distended, No tenderness, No masses, No rebound, No guarding Musculoskeletal: No erythema, No tenderness, No warmth Integumentary: Other (Swelling, erythema to the right lower extremity significantly improved. No pain noted.) Neurological: Normal speech, Normal strength at 5/5 x4 extr, Normal tone Laboratory Data at Discharge: WBC 13.8 K/uL (4.3-10.9) H 04/30/20 03:29 Hgb 10.9 g/dL (13.6-17.9) L 04/30/20 03:29 Hct 34.3 % (39.6-49.0) L 04/30/20 03:29 Plt Count 381 K/uL (152-406) 04/30/20 03:29 PT 14.4 SECONDS (9.5-12.5) H 04/23/20 17:39 INR 1.23 04/23/20 17:39 APTT 29.8 SECONDS (24.3-36.9) 04/23/20 17:39 Sodium 140 mmol/L (136-145) 04/30/20 03:24 Potassium 3.5 mmol/L (3.5-5.1) 04/30/20 03:24 BUN 7 mg/dL (7-18) 04/30/20 03:24 Creatinine 0.96 mg/dL (0.55-1.3) 04/30/20 03:24 Glucose 109 mg/dL (74-106) H 04/30/20 03:24 Phosphorus 2.9 mg/dL (2.5-4.9) 04/26/20 05:26 Magnesium 1.8 mg/dL (1.8-2.4) 04/30/20 03:24 Total Bilirubin 0.5 mg/dL (0.2-1.0) 04/26/20 05:26 AST 18 U/L (15-37) 04/26/20 05:26 ALT 35 U/L (12-78) 04/26/20 05:26 Alkaline Phosphatase 84 U/L (45-117) 04/26/20 05:26 Lipase 46 U/L (73-393) L 04/23/20 09:56 Home Medications: Apixaban [Eliquis] 5 mg PO BID #60 tablet 04/30/20 Famotidine [Pepcid*] 20 mg PO BID #60 tab 04/30/20 Furosemide [Lasix*] 20 mg PO BIDL #60 tab 04/30/20 Hydralazine HCl 50 mg PO BID #60 tablet 04/30/20 Losartan Potassium [Cozaar*] 50 mg PO BID #60 tablet 04/30/20 Metoprolol Tartrate [Lopressor*] 50 mg PO BID #60 tab 04/30/20 levoFLOXacin [Levaquin*] 750 mg PO DAILY #10 tab 04/30/20 New Medications: Losartan Potassium [Cozaar*] 50 mg PO BID #60 tablet Apixaban [Eliquis] 5 mg PO BID #60 tablet Hydralazine HCl 50 mg PO BID #60 tablet Furosemide [Lasix*] 20 mg PO BIDL #60 tab levoFLOXacin [Levaquin*] 750 mg PO DAILY #10 tab Metoprolol Tartrate [Lopressor*] 50 mg PO BID #60 tab Famotidine [Pepcid*] 20 mg PO BID #60 tab Patient Discharge Instructions: 1. Patient to establish care with Dr. Doty. 2. Patient presented with right lower extremity cellulitis and epigastric pain. Patient was found to have cholelithiasis without cholecystitis. The patient was treated for cellulitis. Wound culture was positive for Staphylococcus aureus. Patient also had positive blood cultures for Streptococcus dysgalactiae. Sensitivities were noted to Levaquin. Patient was transitioned to oral Levaquin with improvement. Edema, erythema to the right lower extremity has significantly improved. No surgical intervention was required. At discharge patient will continue with Levaquin 750 mg daily for 10 more days. Recommend to recheck blood culture after that time to monitor resolution. Will have patient establish care with a local PCP open also continue with current wound care. The patient may also follow up at the wound Care Center to further address. 3. Patient with diabetes mellitus type 2. Hyperglycemia noted 7.0. Patient not take any medication at this time. Patient seems to be controlled with diet. At discharge patient continue with a 2000 ADA diet. Recommend to monitor blood sugars at least twice daily. If blood sugars remain above 200 then patient may require medication. This can be further monitored and addressed by his PCP. 4. Patient with hypertension. This was uncontrolled. Patient required additional medication. At discharge patient will continue with losartan 50 mg 1 pill twice daily, metoprolol 50 mg 1 pill twice daily, and hydralazine 50 mg 1 pill twice daily. Recommend to maintain blood pressure less than 130/80. Further adjustment can be done by his PCP. 5. Patient with chronic lymphedema. Patient did require diuretic therapy. At discharge patient will continue with a 1500 cc per day fluid restriction and low-salt diet. Patient will also continue with Lasix 20 mg 1 pill twice daily. Recommend to recheck lab-BMP in 1 week to monitors progress. Recommend to monitor his weight daily. Further adjustment in medication can be done by his PCP. 6. Patient required PICC line. Difficulty was noted due to his body habitus. This was removed. Venous Doppler after this showed subclavian thrombus. This was likely provoked from the PICC line. At discharge patient will continue with Eliquis 5 mg 1 pill twice daily. He will continue with medication for at least 3 months. Education on subclavian thrombus and Eliquis will be provided. 7. Patient had some mild rectal bleeding. This was 1 episode. No further bleeding noted. This will need to be monitored closely as the patient will be on Eliquis. If rectal bleeding continues he is to contact his PCP for further recommendation. He is to stop his Eliquis if with noted bleeding. 8. Patient with iron deficiency anemia. This appears stable this time. Patient may continue with a multivitamin with iron over the counter. Recommend to recheck CBC in 2-4 weeks to monitors progress. 9. Patient with morbid obesity. Patient likely with underlying obstructive sleep apnea. Recommend follow up with pulmonology for sleep study to further evaluate. Patient will also benefit with bariatric surgery evaluation to further address and treat. Diet: ADA Activity: Ad mu Followup: Unknown,U [Primary Care Provider] - Time spent managing pt's care (in minutes): 55
[2020-04-30 13:01] VITALS: BP 162/72
[2020-04-30 13:24] VITALS: TEMP 97.4
[2020-04-30] MEDS ORDERED: FAMOTIDINE 20 MG TAB PO SCH (21:00)
[2020-04-30] MEDS ORDERED: APIXABAN 5 MG TABLET PO SCH (21:00)
== END 2020-04-30 15:02 | disposition home or self-care (01) | DRG 872 ==
LOC: ER 16:44 → ERHOLD 19:01 → 4TH 21:14 → 2ND 04-24 14:29
PROVIDERS: ADMIT Hospitalist; ATTEND Family Medicine
PROC: 02HV33Z Insertion of Infusion Device into Superior Vena Cava, Percutaneous Approach (ICD-10-PCS; principal; 2020-04-29)
DX: A41.9 Sepsis, unspecified organism (principal); L03.115 Cellulitis of right lower limb; Z68.45 Body mass index [BMI] 70 or greater, adult; E87.2 Acidosis; L97.819 Non-pressure chronic ulcer of other part of right lower leg with unspecified severity; K62.5 Hemorrhage of anus and rectum; I82.B11 Acute embolism and thrombosis of right subclavian vein; I82.611 Acute embolism and thrombosis of superficial veins of right upper extremity; I83.018 Varicose veins of right lower extremity with ulcer other part of lower leg; E66.01 Morbid (severe) obesity due to excess calories; E11.65 Type 2 diabetes mellitus with hyperglycemia; K76.0 Fatty (change of) liver, not elsewhere classified; D50.9 Iron deficiency anemia, unspecified; I10 Essential (primary) hypertension; G47.33 Obstructive sleep apnea (adult) (pediatric); D72.825 Bandemia; E88.09 Other disorders of plasma-protein metabolism, not elsewhere classified; K80.20 Calculus of gallbladder without cholecystitis without obstruction; B95.4 Other streptococcus as the cause of diseases classified elsewhere; B95.61 Methicillin susceptible Staphylococcus aureus infection as the cause of diseases classified elsewhere; Z79.01 Long term (current) use of anticoagulants; Z79.899 Other long term (current) drug therapy; Z91.14 Patient's other noncompliance with medication regimen; Z91.013 Allergy to seafood; Z20.828 Contact with and (suspected) exposure to other viral communicable diseases; Z23 Encounter for immunization
CPT/HCPCS: 36415; 36569; 71045; 76705; 80048; 80053; 80076; 80202; 81003; 81015; 82607; 82728; 82947; 83036; 83540; 83605; 83690; 83735; 83880; 84100; 84132; 84145; 84439; 84443; 84466; 84484; 85014; 85018; 85025; 85610; 85652; 85730; 86140; 87040; 87070; 87077; 87186; 87205; 87804; 90471; 90732; 93005; 93970; 93971; 96361; 96365; 96366; 96375; 97161; 99285; J0360; J0692; J1644; J1720; J1940; J2270; J2405; J2543; J2997; J3370; J3475; J3480; J7030; J7040; Q2035; U0003